=== PATIENT | female | born 1935 | race Caucasian/White ===

== ENCOUNTER → 2018-03-05 10:35 | Outpatient (CLI) | payer MEDICARE, OTHER, SELFPAY ==
--- NOTE | 2018-03-05 10:39 | DI.RAD.S_ITS ---
PROCEDURE: XR HIP W PEL IF DONE LT 2V INDICATIONS: hip pain TECHNIQUE: 2 views of the hip were acquired. COMPARISON: None. FINDINGS: Bones: No fractures or dislocations. No suspicious bony lesions. The visualized pelvic ring appears intact. Mild to moderate left hip joint osteoarthritis. Soft tissues: No suspicious soft tissue calcifications or masses. IMPRESSION: Mild to moderate left hip joint osteoarthritis, no trauma found. Mild right hip joint osteoarthritis incidentally noted. Dictated by: Kenneth Nj M.D. on 03/05/2018 at 12:07 Approved by: Kenneth Nj M.D. on 03/05/2018 at 12:08
[2018-03-05 11:41] LABS: Alanine Aminotransferase 30 IU/L (9-52); Albumin 4.4 g/dL (3.5-5.0); Albumin Globulin Ratio 1.2 (1.0-2.8); Alkaline Phosphatase 77 U/L (38-126); Aspartate Aminotransferase 35 IU/L (14-36); BUN Creatinine Ratio 24.3 (6-22); Bilirubin Total 0.5 mg/dL (0.2-1.3); Blood Urea Nitrogen 17 mg/dL (7-17); Calcium 9.2 mg/dL (8.4-10.2); Carbon Dioxide 26 mmol/L (22-32); Chloride 104 mmol/L (98-107); Estimated Glomerular Filt Rate > 60.0 mL/min (>60); Globulin 3.6 g/dL (1.7-4.1); Glucose 153 mg/dL (80-110); HEMOLYSIS < 15 (0-50); Potassium 3.8 mmol/L (3.4-5.1); Sodium 143 mmol/L (137-145)
[2018-03-05 12:03] LABS: Free T3, Triiodothyronine Free 2.45 pg/mL (2.77-5.27); Free T4, Direct Thyroxine 1.09 ng/dL (0.78-2.19)
[2018-03-05 12:16] LABS: Thyroid Stimulating Hormone 3.02 uIU/mL (0.47-4.68)
== END ==
PROVIDERS: PCP Internal Medicine; Visit Provider Internal Medicine
DX: M25.559 Pain in unspecified hip (principal); E03.9 Hypothyroidism, unspecified; I10 Essential (primary) hypertension
CPT/HCPCS: 36415; 73502; 80053; 84439; 84443; 84481

== ENCOUNTER → 2018-03-07 18:36 | Outpatient (REF) | payer MEDICARE, OTHER, SELFPAY | LOC: LAB 18:36 | PROVIDERS: PCP Internal Medicine; Visit Provider Physician Assistant | DX: L98.8 Other specified disorders of the skin and subcutaneous tissue (principal); Z08 Encounter for follow-up examination after completed treatment for malignant neoplasm; Z85.828 Personal history of other malignant neoplasm of skin; L57.0 Actinic keratosis; X32.XXXA Exposure to sunlight, initial encounter; D23.72 Other benign neoplasm of skin of left lower limb, including hip; L40.0 Psoriasis vulgaris | CPT/HCPCS: 87070; 87075; 87205 ==

== ENCOUNTER 2018-07-11 09:50 | Emergency (ER) | payer MEDICARE, OTHER, SELFPAY ==
[2018-07-11] VITALS (12 sets, daily range): BP systolic 111–148; BP diastolic 55–98; PULSE 81–140; RESP 13–22; TEMP 36.2; O2SAT 93–97; BMI 33.7
--- NOTE | 2018-07-11 10:08 | DI.RAD.S_ITS ---
PROCEDURE: XR CHEST 1V INDICATIONS: CHEST PAIN/SHORTNESS OF BREATH TECHNIQUE: One view of the chest was acquired. COMPARISON: None. FINDINGS: Surgical changes and devices: None. Lungs and pleura: Lungs are clear. No pleural effusions or pneumothorax. Mediastinum: Mediastinal contours appear normal. Heart size is normal. Bones and chest wall: No suspicious bony lesions. Overlying soft tissues appear unremarkable. IMPRESSION: No acute cardiopulmonary disease. Dictated by: Leilani Hubbard M.D. on 07/11/2018 at 10:34 Approved by: Leilani Hubbard M.D. on 07/11/2018 at 10:34
[2018-07-11 10:23] LABS: Add Manual Diff / Slide Review NO; Basophils Absolute Auto 100 /uL (0-100); Basophils Percent Auto 0.8 % (0-2); Eosinophils Absolute Auto 100 /uL (0-450); Hematocrit 47.9 % (36-46); Hemoglobin 15.8 g/dL (12.0-16.0); Lymphocytes Absolute Auto 2200 /uL (1100-4500); Lymphocytes Percent Auto 20.6 % (25-40); Mean Corpuscular Hemoglobin 30.4 PG (26-34); Mean Corpuscular Volume 92.1 fL (80-100); Monocytes Absolute Auto 900 /uL (0-900); Neutrophils Absolute Auto 7400 /uL (1500-7000); Neutrophils Percent Auto 69.6 % (50-75); Platelet Count 282 X10^3/uL (150-400); Red Blood Cell Count 5.21 X10^6/uL (4.0-5.2); Red Cell Distribution Width 14.1 % (11.6-14.8); White Blood Cell Count 10.6 X10^3/uL (4.5-11.0)
--- NOTE | 2018-07-11 10:24 | ED.ARRPALP ---
HPI - Arrhythmia/Palpitations General Chief Complaint: Arrhythmia/Palpitations Stated Complaint: EXCELLERATED HEART RATE Time Seen by Provider: 07/11/18 10:07 Source: patient and family Mode of arrival: ambulatory Limitations: no limitations History of Present Illness HPI narrative: 83-year-old female nonsmoker with history of AFib and hypothyroidism presents with her son in the chief complaint of rapid heart rate, palpitations, shortness of breath, dizziness and episodes of chest pain which started last evening. She is certain the symptoms started last evening as she is very sensitive to this arrhythmia. She denies runny nose, sore throat or fever. She has had no chills or nausea or vomiting. She denies diarrhea, dysuria or frequency. MD complaint: rapid heart beat, heart racing, palpitations and irregular heart beat Onset (ago): hour(s) Duration: constant Severity: moderate Context: occurred during rest Arrhythmia history: atrial fibrillation Associated symptoms: chest pain and shortness of breath Related Data Home Medications Medication Instructions Recorded Confirmed aspirin 81 mg tablet,delayed 81 mg PO DAILY 12/05/17 07/11/18 release potassium gluconate 550 mg (90 mg) 550 mg PO DAILY tab 12/05/17 07/11/18 tablet simvastatin 10 mg tablet 10 mg PO QPM 12/05/17 07/11/18 zolpidem 5 mg tablet 5 mg PO BEDTIME PRN 12/05/17 07/11/18 antiox. [id number] 1 cap PO DAILY 07/11/18 07/11/18 [I-Caps] clobetasol 1 applic TOPICAL DIRECTED PRN 07/11/18 07/11/18 hydrocortisone 1 applic TOPICAL DIRECTED 07/11/18 07/11/18 levothyroxine 75 mcg PO DAILY 07/11/18 07/11/18 Previous Rx's Medication Instructions Recorded ranitidine 150 mg capsule 300 mg PO DAILY #120 cap 04/09/18 losartan 50 mg-hydrochlorothiazide 1 tab PO DAILY #90 tab 06/19/18 12.5 mg tablet apixaban [Eliquis] 5 mg PO BID #30 tab 07/11/18 Allergies Allergy/AdvReac Type Severity Reaction Status Date / Time Sulfa (Sulfonamide AdvReac Mild Sensitivity Verified 06/11/18 09:54 Antibiotics) Review of Systems Review of Systems ROS Unobtainable: All systems reviewed & are unremarkable except as noted in HPI and below Constitutional Denies chills, Denies fever(s), Denies lethargy and Denies weakness Eyes Denies change in vision, Denies eye discharge, Denies irritation and Denies loss of vision ENT Ears, Nose, Mouth, and Throat: Denies change in voice, Denies neck pain and Denies sore throat Cardiovascular Reports chest pain, Denies irregular heart rhythm, Reports lightheadedness, Denies palpitations, Reports dyspnea, Reports dyspnea on exertion and Denies orthopnea Respiratory Denies cough, Reports dyspnea, Reports dyspnea on exertion and Denies wheezing Gastrointestinal Gastrointestinal: Denies abdominal pain, Denies change in bowel habits, Denies diarrhea, Denies nausea and Denies vomiting Genitourinary Denies hematuria, Denies flank pain, Denies urinary incontinence and Denies urinary urgency Musculoskeletal Denies neck pain Integumentary/Breasts Denies pruritus, Denies erythema, Denies rash and Denies wounds Neurologic Denies confusion, Denies loss of vision and Denies weakness Psychiatric Denies anxiety, Denies confusion, Denies depression, Denies homicidal ideation and Denies suicidal ideation Endocrine Denies palpitations Hematologic/Lymphatic Denies easy bruising Allergic/Immunologic Denies wheezing PFSH Medical History Hypertension (Chronic) Hyperlipidemia (Chronic) Hypothyroid (Chronic) Paroxysmal atrial fibrillation (Chronic) Insomnia (Chronic) Hiatal hernia (Chronic) Osteoarthritis of hip (Chronic) Diverticular disease of colon (Chronic) Rosacea (Chronic) Herpes simplex ophthalmicus (Inactive) Surgical History S/P tonsillectomy (Inactive ~1948) S/P shalonda (Inactive ~1962) H/O: hysterectomy (Inactive ~1980) S/P bilateral salpingo-oophorectomy (Inactive ~10/16/13) S/p bilateral blepharoplasty (Inactive 06/20/16) Social History marital status: number of children: 3 household members: spouse lives independently: Yes caregiver/support person: No housing: house pets and animals: No education level: high school occupational status: other (Retired) 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 (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.) leisure activities: reading and other (Traveling, Dinner out, socialize) Smoking Status: Former smoker Tobacco: How many years used: 15 Smokeless tobacco user: other (Cigarettes) quit status: quit date established (1969) second hand exposure: No alcohol intake: current (Wine once in a while, drinks occasionally, very seldom.) substance use type: does not use Social History marital status: number of children: 3 household members: spouse lives independently: Yes caregiver/support person: No housing: house pets and animals: No education level: high school occupational status: other (Retired) 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 Normocephalic. No temporal or scalp tenderness. EYES: Pupils equal round and reactive. Extraocular motions intact. No scleral icterus. No injection or drainage. ENT: Nose without bleeding, purulent drainage or septal hematoma. Throat without erythema, tonsillar hypertrophy or exudate. Uvula midline. Airway patent. NECK: Trachea midline. No JVD or lymphadenopathy. Supple, nontender, no meningeal signs. CARDIOVASCULAR: Tachycardic and irregular, no murmurs, clicks, rubs or gallops RESPIRATORY: Clear to auscultation. Breath sounds equal bilaterally. No wheezes, rales, or rhonchi. GASTROINTESTINAL: Abdomen soft, non-tender, nondistended. No hepato-splenomegaly, or palpable masses. No guarding. EXTREMITIES: No clubbing, cyanosis, or edema. No joint tenderness, effusion, or edema noted. BACK: Nontender without deformity or crepitance. No flank tenderness. NEURO: AOx3. SKIN: No rash or erythema. Initial Vital Signs Initial Vital Signs: Vital Signs Temperature 97.2 F L 07/11/18 10:08 Pulse Rate 140 H 07/11/18 10:08 Respiratory Rate 22 07/11/18 10:08 Blood Pressure 148/98 H 07/11/18 10:08 Pulse Oximetry 97 07/11/18 10:08 Procedures Cardioversion Consent Signed: Yes Indication: Atrial flutter Stability: Stable Time out performed: Yes Preparation: shelter monitor applied, pulse oximeter, capnometry used, supplemental O2 applied, suction/airway equipment at bedside and IV secured IV Propofol Dose (mgs): 30 Total Time of Sedation (Min): 10 Number of attempts (shocks): 1 Joules used: 50 Cardiac rhythm post-cardioversion: Normal sinus rhythm Patient tolerated procedure sedation: Well Procedural Sedation Patient Age: Patient is 5yrs or older Consent signed: Yes Time out performed: Yes Indication: other (cardioversion) ASA Class: II Mallampati Airway Classification: Class II Preparation: shelter monitor applied, pulse oximeter, capnometry used, supplemental O2 applied, suction/airway equipment at bedside and IV secured IV Propofol dose (mg): 30 Intraservice time/total sedation time (min): 10 ED Sedation Level: Moderate (Concious) Patient Tolerated Procedure: Well Complications: none Additional Comments: 5 second episode of asystole before popping back in to normal sinus Course Orders Ordered: Discontinued Medications Enoxaparin Sodium (Lovenox) 40 mg SUBCUT NOW ONE Stop: 07/11/18 11:54 Last Admin: 07/11/18 12:13 Dose: 40 mg Sodium Chloride (Normal Saline 0.9%) 1,000 mls @ 150 mls/hr IV CONT LISETTE Last Infusion: 07/11/18 13:29 Dose: 0 mls/hr Admin: 07/11/18 10:54 Dose: 150 mls/hr Propofol (Diprivan) 30 mg IV NOW ONE Stop: 07/11/18 12:14 Last Admin: 07/11/18 12:14 Dose: 30 mg Consultations Consultation #1: Related findings of the case with patient's primary care provider, he will follow up with her closely as an outpatient Vital Signs - 8 hr 07/11/18 13:31 Pulse Rate 83 Respiratory Rate 15 Blood Pressure 115/55 L Pulse Oximetry 94 MDM - Arrhythmia/Palpitations Medical Records Attestation: I reviewed the patient's medical records. Lab Data Attestation: I reviewed the patient's lab results. Result diagrams: 07/11/18 10:15 07/11/18 10:15 Lab Results 07/11/18 07/11/18 07/11/18 Range/Units 10:15 10:15 10:15 WBC 10.6 (4.5-11.0) X10^3/uL RBC 5.21 H (4.0-5.2) X10^6/uL Hgb 15.8 (12.0-16.0) g/dL Hct 47.9 H (36-46) % MCV 92.1 (80-100) fL MCH 30.4 (26-34) PG MCHC 33.0 (30-36) % RDW 14.1 (11.6-14.8) % Plt Count 282 (150-400) X10^3/uL Neut % (Auto) 69.6 (50-75) % Lymph % (Auto) 20.6 L (25-40) % Teller % (Auto) 8.0 (3-14) % Eos % (Auto) 1.0 L (2-4) % Baso % (Auto) 0.8 (0-2) % Neut # (Auto) 7400 H (7818-5199) /uL Lymph # (Auto) 2200 (6082-5789) /uL Teller # (Auto) 900 (0-900) /uL Eos # (Auto) 100 (0-450) /uL Baso # (Auto) 100 (0-100) /uL PT 12.5 (10.1-12.7) SECONDS INR 1.1 (0.9-1.3) APTT 32 (26.4-36.2) SECONDS Sodium 141 (137-145) mmol/L Potassium 3.5 (3.4-5.1) mmol/L Chloride 104 (98-107) mmol/L Carbon Dioxide 26 (22-32) mmol/L BUN 14 (7-17) mg/dL Creatinine 0.70 (0.52-1.04) mg/dL Estimated GFR > 60.0 (>60) mL/min BUN/Creatinine Ratio 20.0 (6-22) Glucose 120 H (80-110) mg/dL Calcium 9.4 (8.4-10.2) mg/dL Magnesium 2.2 (1.6-2.3) mg/dL Total Creatine Kinase 48 (30-135) U/L CK-MB (CK-2) TNP CK-MB (CK-2) Rel Index TNP Troponin I < 0.012 (0.01-0.034) ng/mL TSH (0.47-4.68) uIU/mL 07/11/18 Range/Units 10:15 WBC (4.5-11.0) X10^3/uL RBC (4.0-5.2) X10^6/uL Hgb (12.0-16.0) g/dL Hct (36-46) % MCV (80-100) fL MCH (26-34) PG MCHC (30-36) % RDW (11.6-14.8) % Plt Count (150-400) X10^3/uL Neut % (Auto) (50-75) % Lymph % (Auto) (25-40) % Teller % (Auto) (3-14) % Eos % (Auto) (2-4) % Baso % (Auto) (0-2) % Neut # (Auto) (9476-2350) /uL Lymph # (Auto) (8376-7958) /uL Teller # (Auto) (0-900) /uL Eos # (Auto) (0-450) /uL Baso # (Auto) (0-100) /uL PT (10.1-12.7) SECONDS INR (0.9-1.3) APTT (26.4-36.2) SECONDS Sodium (137-145) mmol/L Potassium (3.4-5.1) mmol/L Chloride (98-107) mmol/L Carbon Dioxide (22-32) mmol/L BUN (7-17) mg/dL Creatinine (0.52-1.04) mg/dL Estimated GFR (>60) mL/min BUN/Creatinine Ratio (6-22) Glucose (80-110) mg/dL Calcium (8.4-10.2) mg/dL Magnesium (1.6-2.3) mg/dL Total Creatine Kinase (30-135) U/L CK-MB (CK-2) CK-MB (CK-2) Rel Index Troponin I (0.01-0.034) ng/mL TSH 3.14 (0.47-4.68) uIU/mL ECG Data Attestation: I personally reviewed and interpreted this ECG as follows: Prior ECG tracings: available for review Interpretation: Atrial flutter and 140s, no signs of ischemia Discharge Plan Departure Patient Disposition: Home Clinical Impression: Atrial flutter Qualifiers: Atrial flutter type: typical Qualified Code(s): I48.3 - Typical atrial flutter Discharge Date/Time: 07/11/18 13:33 Interventions: ED Discharge Assessment Last Done: 07/11/18 13:31 Activity Restrictions/Additional Instructions: *You have been diagnosed with [ rapid atrial flutter with electrocardioversion ] *What to do: *Take medications as directed *Follow up with your primary care provider in 2-3 days, call for an appointment. Let them know you were seen in the Emergency Department and that we ask that you be seen in follow up. I spoke with Dr. Liang regarding your care today immediately after cardioversion so he is aware. *Return to ER if you should have any new, worsening or concerning symptoms Prescriptions: New Eliquis 5 mg tablet 5 mg PO BID Qty: 30 RF: 0 No Action ranitidine HCl 150 mg capsule 300 mg PO DAILY Qty: 120 RF: 3 losartan-hydrochlorothiazide 50-12.5 mg tablet 1 tab PO DAILY Qty: 90 RF: 3 simvastatin 10 mg tablet 10 mg PO QPM RF: 0 aspirin 81 mg tablet,delayed release (DR/EC) 81 mg PO DAILY RF: 0 zolpidem 5 mg tablet 5 mg PO BEDTIME PRN (Reason: Insomnia) RF: 0 potassium gluconate 550 mg (90 mg) tablet 550 mg PO DAILY RF: 0 I-Caps 280-10-2 mg Capsule 1 cap PO DAILY RF: 0 levothyroxine 75 mcg tablet 75 mcg PO DAILY RF: 0 hydrocortisone 2.5 % cream 1 applic topical DIRECTED RF: 0 clobetasol 0.05 % solution 1 applic topical DIRECTED PRN (Reason: as directed) RF: 0 Referrals: Godfrey Liang MD [Primary Care Provider] -
[2018-07-11 10:26] LABS: INR 1.1 (0.9-1.3); Prothrombin Time 12.5 SECONDS (10.1-12.7)
[2018-07-11 10:29] LABS: PTT Partial Thromboplastin Tim 32 SECONDS (26.4-36.2)
[2018-07-11 10:32] LABS: Blood Urea Nitrogen 14 mg/dL (7-17); Calcium 9.4 mg/dL (8.4-10.2); Carbon Dioxide 26 mmol/L (22-32); Chloride 104 mmol/L (98-107); Creatine Kinase 48 U/L (30-135); Estimated Glomerular Filt Rate > 60.0 mL/min (>60); Glucose 120 mg/dL (80-110); HEMOLYSIS < 15 (0-50); Magnesium 2.2 mg/dL (1.6-2.3); Potassium 3.5 mmol/L (3.4-5.1); Sodium 141 mmol/L (137-145)
[2018-07-11 10:42] LABS: Troponin I < 0.012 ng/mL (0.01-0.034)
[2018-07-11] MEDS: SODIUM CHLORIDE 0.9% 1,000 ML 150 ML IV (10:54)
[2018-07-11 11:01] LABS: Thyroid Stimulating Hormone 3.14 uIU/mL (0.47-4.68)
[2018-07-11] MEDS: ENOXAPARIN 40 MG/0.4 ML SYRINGE SUBCUT (12:13)
[2018-07-11] MEDS: PROPOFOL 200 MG/20 ML VIAL 30 MG IV (12:14)
--- NOTE | 2018-07-11 20:43 | ED_ITS ---
HPI - Arrhythmia/Palpitations General Chief Complaint: Arrhythmia/Palpitations Stated Complaint: EXCELLERATED HEART RATE Time Seen by Provider: 07/11/18 10:07 Source: patient and family Mode of arrival: ambulatory Limitations: no limitations History of Present Illness HPI narrative: 83-year-old female nonsmoker with history of AFib and hypothyroidism presents with her son in the chief complaint of rapid heart rate, palpitations, shortness of breath, dizziness and episodes of chest pain which started last evening. She is certain the symptoms started last evening as she is very sensitive to this arrhythmia. She denies runny nose, sore throat or fever. She has had no chills or nausea or vomiting. She denies diarrhea, dysuria or frequency. MD complaint: rapid heart beat, heart racing, palpitations and irregular heart beat Onset (ago): hour(s) Duration: constant Severity: moderate Context: occurred during rest Arrhythmia history: atrial fibrillation Associated symptoms: chest pain and shortness of breath Related Data Home Medications Medication Instructions Recorded Confirmed aspirin 81 mg tablet,delayed 81 mg PO DAILY 12/05/17 07/11/18 release potassium gluconate 550 mg (90 mg) 550 mg PO DAILY tab 12/05/17 07/11/18 tablet simvastatin 10 mg tablet 10 mg PO QPM 12/05/17 07/11/18 zolpidem 5 mg tablet 5 mg PO BEDTIME PRN 12/05/17 07/11/18 antiox. [id number] 1 cap PO DAILY 07/11/18 07/11/18 [I-Caps] clobetasol 1 applic TOPICAL DIRECTED PRN 07/11/18 07/11/18 hydrocortisone 1 applic TOPICAL DIRECTED 07/11/18 07/11/18 levothyroxine 75 mcg PO DAILY 07/11/18 07/11/18 Previous Rx's Medication Instructions Recorded ranitidine 150 mg capsule 300 mg PO DAILY #120 cap 04/09/18 losartan 50 mg-hydrochlorothiazide 1 tab PO DAILY #90 tab 06/19/18 12.5 mg tablet apixaban [Eliquis] 5 mg PO BID #30 tab 07/11/18 Allergies Allergy/AdvReac Type Severity Reaction Status Date / Time Sulfa (Sulfonamide AdvReac Mild Sensitivity Verified 06/11/18 09:54 Antibiotics) Review of Systems Review of Systems ROS Unobtainable: All systems reviewed & are unremarkable except as noted in HPI and below Constitutional Denies chills, Denies fever(s), Denies lethargy and Denies weakness Eyes Denies change in vision, Denies eye discharge, Denies irritation and Denies loss of vision ENT Ears, Nose, Mouth, and Throat: Denies change in voice, Denies neck pain and Denies sore throat Cardiovascular Reports chest pain, Denies irregular heart rhythm, Reports lightheadedness, Denies palpitations, Reports dyspnea, Reports dyspnea on exertion and Denies orthopnea Respiratory Denies cough, Reports dyspnea, Reports dyspnea on exertion and Denies wheezing Gastrointestinal Gastrointestinal: Denies abdominal pain, Denies change in bowel habits, Denies diarrhea, Denies nausea and Denies vomiting Genitourinary Denies hematuria, Denies flank pain, Denies urinary incontinence and Denies urinary urgency Musculoskeletal Denies neck pain Integumentary/Breasts Denies pruritus, Denies erythema, Denies rash and Denies wounds Neurologic Denies confusion, Denies loss of vision and Denies weakness Psychiatric Denies anxiety, Denies confusion, Denies depression, Denies homicidal ideation and Denies suicidal ideation Endocrine Denies palpitations Hematologic/Lymphatic Denies easy bruising Allergic/Immunologic Denies wheezing PFSH Medical History Hypertension (Chronic) Hyperlipidemia (Chronic) Hypothyroid (Chronic) Paroxysmal atrial fibrillation (Chronic) Insomnia (Chronic) Hiatal hernia (Chronic) Osteoarthritis of hip (Chronic) Diverticular disease of colon (Chronic) Rosacea (Chronic) Herpes simplex ophthalmicus (Inactive) Surgical History S/P tonsillectomy (Inactive ~1948) S/P shalonda (Inactive ~1962) H/O: hysterectomy (Inactive ~1980) S/P bilateral salpingo-oophorectomy (Inactive ~10/16/13) S/p bilateral blepharoplasty (Inactive 06/20/16) Social History marital status: number of children: 3 household members: spouse lives independently: Yes caregiver/support person: No housing: house pets and animals: No education level: high school occupational 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 travel reservations history: recurrent (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.) leisure activities: reading and other (Traveling, Dinner out, socialize) Smoking Status: Former smoker Tobacco: How many years used: 15 Smokeless tobacco user: other (Cigarettes) quit status: quit date established (1969) second hand exposure: No alcohol intake: current (Wine once in a while, drinks occasionally, very seldom.) substance use type: does not use Social History marital status: number of children: 3 household members: spouse lives independently: Yes caregiver/support person: No housing: house pets and animals: No education level: high school 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 Normocephalic. No temporal or scalp tenderness. EYES: Pupils equal round and reactive. Extraocular motions intact. No scleral icterus. No injection or drainage. ENT: Nose without bleeding, purulent drainage or septal hematoma. Throat without erythema, tonsillar hypertrophy or exudate. Uvula midline. Airway patent. NECK: Trachea midline. No JVD or lymphadenopathy. Supple, nontender, no meningeal signs. CARDIOVASCULAR: Tachycardic and irregular, no murmurs, clicks, rubs or gallops RESPIRATORY: Clear to auscultation. Breath sounds equal bilaterally. No wheezes, rales, or rhonchi. GASTROINTESTINAL: Abdomen soft, non-tender, nondistended. No hepato- splenomegaly, or palpable masses. No guarding. EXTREMITIES: No clubbing, cyanosis, or edema. No joint tenderness, effusion, or edema noted. BACK: Nontender without deformity or crepitance. No flank tenderness. NEURO: AOx3. SKIN: No rash or erythema. Initial Vital Signs Initial Vital Signs: Vital Signs Temperature 97.2 F L 07/11/18 10:08 Pulse Rate 140 H 07/11/18 10:08 Respiratory Rate 22 07/11/18 10:08 Blood Pressure 148/98 H 07/11/18 10:08 Pulse Oximetry 97 07/11/18 10:08 Procedures Cardioversion Consent Signed: Yes Indication: Atrial flutter Stability: Stable Time out performed: Yes Preparation: metrology technician applied, pulse oximeter, capnometry used, supplemen lesia O2 applied, suction/airway equipment at bedside and IV secured IV Propofol Dose (mgs): 30 Total Time of Sedation (Min): 10 Number of attempts (shocks): 1 Joules used: 50 Cardiac rhythm post-cardioversion: Normal sinus rhythm Patient tolerated procedure sedation: Well Procedural Sedation Patient Age: Patient is 5yrs or older Consent signed: Yes Time out performed: Yes Indication: other (cardioversion) ASA Class: II Mallampati Airway Classification: Class II Preparation: metrology technician applied, pulse oximeter, capnometry used, supplemental O2 applied, suction/airway equipment at bedside and IV secured IV Propofol dose (mg): 30 Intraservice time/total sedation time (min): 10 ED Sedation Level: Moderate (Concious) Patient Tolerated Procedure: Well Complications: none Additional Comments: 5 second episode of asystole before popping back in to normal sinus Course Orders Ordered: Discontinued Medications Enoxaparin Sodium (Lovenox) 40 mg SUBCUT NOW ONE Stop: 07/11/18 11:54 Last Admin: 07/11/18 12:13 Dose: 40 mg Sodium Chloride (Normal Saline 0.9%) 1,000 mls @ 150 mls/hr IV CONT LISETTE Last Infusion: 07/11/18 13:29 Dose: 0 mls/hr Admin: 07/11/18 10:54 Dose: 150 mls/hr Propofol (Diprivan) 30 mg IV NOW ONE Stop: 07/11/18 12:14 Last Admin: 07/11/18 12:14 Dose: 30 mg Consultations Consultation #1: Related findings of the case with patient's primary care prov ider, he will follow up with her closely as an outpatient Vital Signs - 8 hr 07/11/18 13:31 Pulse Rate 83 Respiratory Rate 15 Blood Pressure 115/55 L Pulse Oximetry 94 MDM - Arrhythmia/Palpitations Medical Records Attestation: I reviewed the patient's medical records. Lab Data Attestation: I reviewed the patient's lab results. Result diagrams: 07/11/18 10:15 07/11/18 10:15 Lab Results 07/11/18 07/11/18 07/11/18 Range/Units 10:15 10:15 10:15 WBC 10.6 (4.5-11.0) X10^3/uL RBC 5.21 H (4.0-5.2) X10^6/uL Hgb 15.8 (12.0-16.0) g/dL Hct 47.9 H (36-46) % MCV 92.1 (80-100) fL MCH 30.4 (26-34) PG MCHC 33.0 (30-36) % RDW 14.1 (11.6-14.8) % Plt Count 282 (150-400) X10^3/uL Neut % (Auto) 69.6 (50-75) % Lymph % (Auto) 20.6 L (25-40) % Pepin % (Auto) 8.0 (3-14) % Eos % (Auto) 1.0 L (2-4) % Baso % (Auto) 0.8 (0-2) % Neut # (Auto) 7400 H (7950-1180) /uL Lymph # (Auto) 2200 (1804-5173) /uL Pepin # (Auto) 900 (0-900) /uL Eos # (Auto) 100 (0-450) /uL Baso # (Auto) 100 (0-100) /uL PT 12.5 (10.1-12.7) SECONDS INR 1.1 (0.9-1.3) APTT 32 (26.4-36.2) SECONDS Sodium 141 (137-145) mmol/L Potassium 3.5 (3.4-5.1) mmol/L Chloride 104 (98-107) mmol/L Carbon Dioxide 26 (22-32) mmol/L BUN 14 (7-17) mg/dL Creatinine 0.70 (0.52-1.04) mg/dL Estimated GFR > 60.0 (>60) mL/min BUN/Creatinine Ratio 20.0 (6-22) Glucose 120 H (80-110) mg/dL Calcium 9.4 (8.4-10.2) mg/dL Magnesium 2.2 (1.6-2.3) mg/dL Total Creatine Kinase 48 (30-135) U/L CK-MB (CK-2) TNP CK-MB (CK-2) Rel Index TNP Troponin I < 0.012 (0.01-0.034) ng/mL TSH (0.47-4.68) uIU/mL 07/11/18 Range/Units 10:15 WBC (4.5-11.0) X10^3/uL RBC (4.0-5.2) X10^6/uL Hgb (12.0-16.0) g/dL Hct (36-46) % MCV (80-100) fL MCH (26-34) PG MCHC (30-36) % RDW (11.6-14.8) % Plt Count (150-400) X10^3/uL Neut % (Auto) (50-75) % Lymph % (Auto) (25-40) % Pepin % (Auto) (3-14) % Eos % (Auto) (2-4) % Baso % (Auto) (0-2) % Neut # (Auto) (8988-9226) /uL Lymph # (Auto) (2170-9876) /uL Pepin # (Auto) (0-900) /uL Eos # (Auto) (0-450) /uL Baso # (Auto) (0-100) /uL PT (10.1-12.7) SECONDS INR (0.9-1.3) APTT (26.4-36.2) SECONDS Sodium (137-145) mmol/L Potassium (3.4-5.1) mmol/L Chloride (98-107) mmol/L Carbon Dioxide (22-32) mmol/L BUN (7-17) mg/dL Creatinine (0.52-1.04) mg/dL Estimated GFR (>60) mL/min BUN/Creatinine Ratio (6-22) Glucose (80-110) mg/dL Calcium (8.4-10.2) mg/dL Magnesium (1.6-2.3) mg/dL Total Creatine Kinase (30-135) U/L CK-MB (CK-2) CK-MB (CK-2) Rel Index Troponin I (0.01-0.034) ng/mL TSH 3.14 (0.47-4.68) uIU/mL ECG Data Attestation: I personally reviewed and interpreted this ECG as follows: Prior ECG tracings: available for review Interpretation: Atrial flutter and 140s, no signs of ischemia Discharge Plan Departure Patient Disposition: Home Clinical Impression: Atrial flutter Qualifiers: Atrial flutter type: typical Qualified Code(s): I48.3 - Typical atrial flutter Discharge Date/Time: 07/11/18 13:33 Interventions: ED Discharge Assessment Last Done: 07/11/18 13:31 Activity Restrictions/Additional Instructions: *You have been diagnosed with [ rapid atrial flutter with electrocardioversion ] *What to do: *Take medications as directed *Follow up with your primary care provider in 2-3 days, call for an appointment. Let them know you were seen in the Emergency Department and that we ask that you be seen in follow up. I spoke with Dr. Liang regarding your care today immediately after cardioversion so he is aware. *Return to ER if you should have any new, worsening or concerning symptoms Prescriptions: New Eliquis 5 mg tablet 5 mg PO BID Qty: 30 RF: 0 No Action ranitidine HCl 150 mg capsule 300 mg PO DAILY Qty: 120 RF: 3 losartan-hydrochlorothiazide 50-12.5 mg tablet 1 tab PO DAILY Qty: 90 RF: 3 simvastatin 10 mg tablet 10 mg PO QPM RF: 0 aspirin 81 mg tablet,delayed release (DR/EC) 81 mg PO DAILY RF: 0 zolpidem 5 mg tablet 5 mg PO BEDTIME PRN (Reason: Insomnia) RF: 0 potassium gluconate 550 mg (90 mg) tablet 550 mg PO DAILY RF: 0 I-Caps 280-10-2 mg Capsule 1 cap PO DAILY RF: 0 levothyroxine 75 mcg tablet 75 mcg PO DAILY RF: 0 hydrocortisone 2.5 % cream 1 applic topical DIRECTED RF: 0 clobetasol 0.05 % solution 1 applic topical DIRECTED PRN (Reason: as directed) RF: 0 Referrals: Godfrey Liang MD [Primary Care Provider] -
== END 2018-07-11 13:33 | disposition home or self-care (01) ==
PROVIDERS: Emergency Provider Emergency Medicine; PCP Internal Medicine
DX: I48.3 Typical atrial flutter (principal); E16.2 Hypoglycemia, unspecified
CPT/HCPCS: 36591; 71045; 80048; 82550; 83735; 84443; 84484; 85025; 85610; 85730; 92960; 93005; 94770; 96361; 96374; 99152; 99282; 99285; J1650; J2704

== ENCOUNTER 2018-07-11 15:52 | Emergency (ER) | payer MEDICARE, OTHER, SELFPAY ==
[2018-07-11 16:25] VITALS: BP 133/97; PULSE 82; RESP 18; TEMP 36.5; O2SAT 96
[2018-07-11 16:58] VITALS: PULSE 140; RESP 18; O2SAT 93
[2018-07-11 17:00] VITALS: BP 105/54; PULSE 77; RESP 18; O2SAT 97
--- NOTE | 2018-07-11 17:00 | ED_ITS ---
HPI - Syncope General Chief Complaint: Syncope Stated Complaint: FEELS FAINT Time Seen by Provider: 07/11/18 16:08 Source: patient and family Mode of arrival: ambulatory Limitations: no limitations History of Present Illness HPI narrative: 83-year-old female returns for the 2nd time today. She was seen earlier for evaluation of a tachyarrhythmia. She had a cardioversion and was discharged after a period of observation. She felt great and had a complete resolution of her symptoms. Her had just been brought in by EMS after a syncopal episode and she presented with her son and during her 's visit she states she began to feel a bit faint and lightheaded. She was taken to another exam room and checked in. She admittedly had been up most of the day and had very little to eat or drink. Early on her blood sugar was checked and found to be quite low. MD complaint: felt faint Onset (ago): minute(s) Duration of episode: 30 -: minutes(s) Prodromal symptoms: lightheaded Witnessed: yes - by bystander Context: at rest Injuries sustained associated with event: none Current symptoms: lightheaded Treatments prior to arrival: none Related Data Home Medications Medication Instructions Recorded Confirmed aspirin 81 mg tablet,delayed 81 mg PO DAILY 12/05/17 07/11/18 release potassium gluconate 550 mg (90 mg) 550 mg PO DAILY tab 12/05/17 07/11/18 tablet simvastatin 10 mg tablet 10 mg PO QPM 12/05/17 07/11/18 zolpidem 5 mg tablet 5 mg PO BEDTIME PRN 12/05/17 07/11/18 antiox. no.[id number] 1 cap PO DAILY 07/11/18 07/11/18 [I-Caps] clobetasol 1 applic TOPICAL DIRECTED PRN 07/11/18 07/11/18 hydrocortisone 1 applic TOPICAL DIRECTED 07/11/18 07/11/18 levothyroxine 75 mcg PO DAILY 07/11/18 07/11/18 Previous Rx's Medication Instructions Recorded ranitidine 150 mg capsule 300 mg PO DAILY #120 cap 04/09/18 losartan 50 mg-hydrochlorothiazide 1 tab PO DAILY #90 tab 06/19/18 12.5 mg tablet apixaban [Eliquis] 5 mg PO BID #30 tab 07/11/18 Allergies Allergy/AdvReac Type Severity Reaction Status Date / Time Sulfa (Sulfonamide AdvReac Mild Sensitivity Verified 06/11/18 09:54 Antibiotics) Review of Systems Constitutional Denies chills, Denies fever(s), Denies lethargy and Reports weakness Eyes Denies change in vision, Denies eye discharge, Denies irritation and Denies loss of vision ENT Ears, Nose, Mouth, and Throat: Denies change in voice, Denies neck pain and Denies sore throat Cardiovascular Denies chest pain, Denies irregular heart rhythm, Reports lightheadedness, Denies palpitations, Denies dyspnea, Denies dyspnea on exertion and Denies orthopnea Respiratory Denies cough, Denies dyspnea, Denies dyspnea on exertion and Denies wheezing Gastrointestinal Gastrointestinal: Denies abdominal pain, Denies change in bowel habits, Denies diarrhea, Denies nausea and Denies vomiting Genitourinary Denies hematuria, Denies flank pain, Denies urinary incontinence and Denies urinary urgency Musculoskeletal Denies neck pain Integumentary/Breasts Denies pruritus, Denies erythema, Denies rash and Denies wounds Neurologic Denies confusion, Denies loss of vision and Reports weakness Psychiatric Denies anxiety, Denies confusion, Denies depression, Denies homicidal ideation and Denies suicidal ideation Endocrine Denies palpitations Hematologic/Lymphatic Denies easy bruising Allergic/Immunologic Denies wheezing PFSH Social History marital status: number of children: 3 household members: spouse lives independently: Yes caregiver/support person: No housing: house pets and animals: No education level: high school occupational status: other (Retired) 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 Extraoccular muscles are intact bilaterally. There is no subconjunctival hemorrhage or exudate. CHEST: Lungs are clear to auscultation bilaterally and free of wheezes, rales, or rhonchi. Heart rate is regular rhythm, there are no murmurs, clicks, rubs, or gallops. There is no chest wall tenderness. ABD: Abdomen is soft and nontender. There is no guarding or rebound. Bowel sounds are normal in all 4 quadrants. There is no mass or organomegaly. EXT: Full painless ROM of all extremities with no loss of sensation or strength. SKIN: Warm, pink, and dry. No erythema or rash Initial Vital Signs Initial Vital Signs: Vital Signs Temperature 97.7 F 07/11/18 16:25 Pulse Rate 82 07/11/18 16:25 Respiratory Rate 18 07/11/18 16:25 Blood Pressure 133/97 H 07/11/18 16:25 Pulse Oximetry 96 07/11/18 16:25 Course Reevaluation(s) Reevaluation #1: Patient with complete resolution of symptoms after some rest and receiving fluids and some glucose. Vital Signs - 8 hr 07/11/18 16:25 07/11/18 16:58 07/11/18 17:00 Temperature 97.7 F Pulse Rate 82 140 H 77 Respiratory Rate 18 18 18 Blood Pressure 133/97 H Blood Pressure [Right Arm] 105/54 L Pulse Oximetry 96 97 07/11/18 17:35 Temperature Pulse Rate 80 Respiratory Rate 18 Blood Pressure 105/64 Blood Pressure [Right Arm] Pulse Oximetry 96 MDM - Syncope MDM Narrative Medical decision making narrative: 83-year-old with recent cardioversion presents feeling light headed. Her EKG is normal sinus rhythm. She admittedly had not had anything to eat or drink over the course of the day and it becomes stressed about her 's arrival in the emergency department. She had complete resolution of symptoms after addressing her low blood sugar Discharge Plan Departure Patient Disposition: Home Clinical Impression: Hypoglycemia Discharge Date/Time: 07/11/18 17:36 Interventions: ED Discharge Assessment Last Done: 07/11/18 17:35 Instructions: Fainting Activity Restrictions/Additional Instructions: *You have been diagnosed with [ lightheadedness, low blood sugar, fatigue] *What to do: *Continue to take medications as directed *Follow up with your primary care provider in 2-3 days, call for an appointment. Let them know you were seen in the Emergency Department and that we ask that you be seen in follow up *Return to ER if you should have any new, worsening or concerning symptoms Prescriptions: No Action ranitidine HCl 150 mg capsule 300 mg PO DAILY Qty: 120 RF: 3 losartan-hydrochlorothiazide 50-12.5 mg tablet 1 tab PO DAILY Qty: 90 RF: 3 simvastatin 10 mg tablet 10 mg PO QPM RF: 0 aspirin 81 mg tablet,delayed release (DR/EC) 81 mg PO DAILY RF: 0 zolpidem 5 mg tablet 5 mg PO BEDTIME PRN (Reason: Insomnia) RF: 0 potassium gluconate 550 mg (90 mg) tablet 550 mg PO DAILY RF: 0 I-Caps 280-10-2 mg Capsule 1 cap PO DAILY RF: 0 levothyroxine 75 mcg tablet 75 mcg PO DAILY RF: 0 hydrocortisone 2.5 % cream 1 applic topical DIRECTED RF: 0 clobetasol 0.05 % solution 1 applic topical DIRECTED PRN (Reason: as directed) RF: 0 Eliquis 5 mg tablet 5 mg PO BID Qty: 30 RF: 0 Referrals: Godfrey Liang MD [Primary Care Provider] -
[2018-07-11 17:35] VITALS: BP 105/64; PULSE 80; RESP 18; O2SAT 96
== END 2018-07-11 17:36 | disposition home or self-care (01) ==
PROVIDERS: Emergency Provider Emergency Medicine; PCP Internal Medicine
DX: E16.2 Hypoglycemia, unspecified (principal)
CPT/HCPCS: 93005; 94770

== ENCOUNTER → 2018-12-17 10:04 | Outpatient (CLI) | payer MEDICARE, OTHER, SELFPAY ==
--- NOTE | 2018-12-17 | DI.RAD.S_ITS ---
PROCEDURE: XR CHEST 2V INDICATIONS: COUGH TECHNIQUE: 2 views of the chest were acquired. COMPARISON: [facility], CR, XR CHEST 2 VIEWS, 08/15/2018, 7:51. [facility], CR, XR CHEST 1V, 07/11/2018, 10:24. FINDINGS: Surgical changes and devices: Dual chamber cardiac pacemaker device and leads appear normal, stable over time.. Lungs and pleura: Lungs are clear. No pleural effusions or pneumothorax. Mediastinum: Mediastinal contours are normal. Heart size is normal. Bones and chest wall: No suspicious bony abnormalities. Soft tissues appear unremarkable. IMPRESSION: A speaking device and leads normal, and no source of cough is found. Dictated by: Kenneth Nj M.D. on 12/17/2018 at 12:38 Approved by: Kenneth Nj M.D. on 12/17/2018 at 12:39
== END ==
PROVIDERS: PCP Internal Medicine; Visit Provider Internal Medicine Cardiovascular Disease
DX: R05 Cough (principal)
CPT/HCPCS: 71046

== ENCOUNTER → 2019-01-24 08:08 | Outpatient (CLI) | payer MEDICARE, OTHER, SELFPAY ==
[2019-01-24 09:48] LABS: Alanine Aminotransferase 19 IU/L (9-52); Albumin 4.2 g/dL (3.5-5.0); Albumin Globulin Ratio 1.4 (1.0-2.8); Alkaline Phosphatase 85 U/L (38-126); Aspartate Aminotransferase 28 IU/L (14-36); BUN Creatinine Ratio 21.4 (6-22); Bilirubin Total 0.7 mg/dL (0.2-1.3); Blood Urea Nitrogen 15 mg/dL (7-17); Calcium 9.7 mg/dL (8.4-10.2); Carbon Dioxide 29 mmol/L (22-32); Chloride 102 mmol/L (98-107); Cholesterol 143 mg/dL (140-199); Estimated Glomerular Filt Rate > 60.0 mL/min (>60); Globulin 3.1 g/dL (1.7-4.1); Glucose 116 mg/dL (80-110); HDL Cholesterol 47 mg/dL (40-60); HEMOLYSIS < 15 (0-50); LDL Cholesterol Calculated 61 mg/dL (<100); Potassium 4.2 mmol/L (3.4-5.1); Sodium 142 mmol/L (137-145); Total Protein 7.3 g/dL (6.3-8.2); Triglycerides 177 mg/dL (35-150)
[2019-01-24 09:59] LABS: Free T4, Direct Thyroxine 0.98 ng/dL (0.78-2.19)
[2019-01-24 10:13] LABS: Thyroid Stimulating Hormone 6.49 uIU/mL (0.47-4.68)
== END ==
PROVIDERS: PCP Internal Medicine; Visit Provider Internal Medicine
DX: E03.9 Hypothyroidism, unspecified (principal); E78.5 Hyperlipidemia, unspecified; I10 Essential (primary) hypertension
CPT/HCPCS: 36415; 80053; 80061; 84439; 84443

== ENCOUNTER → 2019-04-19 13:11 | Outpatient (CLI) | payer MEDICARE, OTHER, SELFPAY ==
[2019-04-19 14:11] LABS: B Type Natriuretic Peptide < 100 (<100)
[2019-04-19 14:16] LABS: Alanine Aminotransferase 21 IU/L (<35); Albumin 4.1 g/dL (3.5-5.0); Albumin Globulin Ratio 1.4 (1.0-2.8); Alkaline Phosphatase 77 U/L (38-126); Aspartate Aminotransferase 33 IU/L (14-36); Bilirubin Total 0.4 mg/dL (0.2-1.3); Blood Urea Nitrogen 16 mg/dL (7-17); Calcium 9.5 mg/dL (8.4-10.2); Carbon Dioxide 31 mmol/L (22-32); Chloride 103 mmol/L (98-107); Cholesterol 138 mg/dL (140-199); Estimated Glomerular Filt Rate > 60.0 mL/min (>60); Glucose 101 mg/dL (80-110); HDL Cholesterol 42 mg/dL (40-60); HEMOLYSIS < 15 (0-50); LDL Cholesterol Calculated 56 mg/dL (<100); Potassium 4.3 mmol/L (3.4-5.1); Sodium 142 mmol/L (137-145); Total Protein 7.1 g/dL (6.3-8.2); Triglycerides 202 mg/dL (35-150)
[2019-04-19 14:30] LABS: Free T4, Direct Thyroxine 1.11 ng/dL (0.78-2.19)
== END ==
PROVIDERS: Family Provider Internal Medicine; PCP Internal Medicine; Visit Provider Internal Medicine Cardiovascular Disease
DX: R06.09 Other forms of dyspnea (principal); E03.9 Hypothyroidism, unspecified; E78.5 Hyperlipidemia, unspecified; I10 Essential (primary) hypertension; I48.0 Paroxysmal atrial fibrillation
CPT/HCPCS: 36415; 80053; 80061; 83880; 84439; 84443

== ENCOUNTER → 2019-04-22 08:52 | Outpatient (CLI) | payer MEDICARE, OTHER, SELFPAY ==
--- NOTE | 2019-04-22 | DI.ECHO.S_ITS ---
[facility]---------+ [facility] +---------+ : : [address] : : : : [id number] : : : : Phone: [phone] Echocardiogram Report + + :Name: DAVID SHEPARD Study Date: 04/22/2019 Height: 61 in : :[facility] Weight: 175 lb : : Gender: Female BSA: 1.8 m2 : :: 1935 Age: 83 yrs BP: 128/84 mmHg: :Reason For Study: Dyspnea : :Ordering Physician: Roderick : :Jesús Reed Performed By: Beni Harmon : :Referring: RODERICK REED : + + Interpretation Summary The left ventricle is normal in size. The ejection fraction is estimated to be 60-65%. No significant change in LVEF since previous study. The right ventricle is not well visualized. The right ventricle grossly appears normal in size with probable normal systolic function.There is a pacemaker lead in the right ventricle. No significant valvular pathology seen. The IVC is of normal diameter and collapses greater than 50% with a sniff. This suggests a low right atrial pressure of 3 mm Hg. Procedure: A two-dimensional transthoracic echocardiogram with color flow and Doppler was performed. The study quality was technically difficult. Prior echo performed on 08/14/18. The patient was in normal sinus rhythm during the exam. Left Ventricle: The left ventricle is normal in size. There is normal left ventricular wall thickness. There is no thrombus. A false chord is noted (normal variant). Left ventricular systolic function is normal. The ejection fraction is estimated to be 60-65%. There are no focal wall motion abnormalities. MV E/A: 0.93 Med Peak E' Jak: 5.7 cm/sec E/E' med: 16.0. Right Ventricle: The right ventricle is not well visualized. The right ventricle grossly appears normal in size with probable normal systolic function. There is a pacemaker lead in the right ventricle. Atria: The left atrial size is normal. Right atrial size is normal. There is a catheter/pacemaker lead seen in the right atrium. The interatrial septum is intact with no evidence for an atrial septal defect. Mitral Valve: There is mild mitral annular calcification. There is trace mitral regurgitation. Aortic Valve: The aortic valve is not well visualized. The aortic valve is mildly calcified. There is no hemodynamically significant valvular aortic stenosis. There is trace aortic regurgitation. Compared to the prior echo study, there has been a decrease in the severity of aortic regurgitation. Tricuspid Valve: The tricuspid valve is not well visualized, but is grossly normal. There is trace tricuspid regurgitation. Pulmonary artery pressures cannot be estimated because of the lack of a measurable TR jet velocity. Pulmonic Valve: The pulmonic valve is not well visualized. There is trace pulmonic regurgitation. Great Vessels: The aortic root is normal size. The aortic arch could not be visualized. The pulmonary artery is normal size. The IVC is of normal diameter and collapses greater than 50% with a sniff. This suggests a low right atrial pressure of 3 mm Hg. Pericardium/ Pleura There is no pericardial effusion. There is no pleural effusion. MMode/2D Measurements & Calculations LVIDd: 4.0 cm LVOT diam: 2.0 cm LVIDs: 2.6 cm Ao root diam: 2.9 cm FS: 35.6 % EPSS: 0.69 cm IVSd: 1.0 cm LVPWd: 0.91 cm LV rios. diameter/BSA (cm/m^2): 2.3 LV sys. diameter/BSA (cm/m^2): 1.4 LA A4 area: 18.4 cm2 RA long axis: 4.1 cm LA length (vol): 5.3 cm RA area: 11.7 cm2 RA vol: 28.3 ml RA : 15.9 ml/m2 Doppler Measurements & Calculations Ao V2 max: 112.6 cm/sec LVOT Max Jak: 92.9 cm/sec Ao V2 mean: 73.7 cm/sec LV V1 max P.5 mmHg Ao max P.1 mmHg LV V1 VTI: 19.7 cm Ao mean P.5 mmHg MAYRA(I,D): 2.3 cm2 Ao V2 VTI: 25.3 cm MAYRA(V,D): 2.5 cm2 sev ratio: 0.78 MAYRA indexed to BSA (cm^2/m^2): 1.3 MV E max jak: 90.8 cm/sec PA V2 max: 59.8 cm/sec MV A max jak: 97.9 cm/sec PA V2 mean: 42.5 cm/sec MV E/A: 0.93 PA mean P.83 mmHg Med Peak E' Jak: 5.7 cm/sec PA Accel Time: 0.16 sec E/E' med: 16.0 Lat Peak E' Jak: 6.6 cm/sec E/E' lat: 13.7 E/e' average: 14.9 MV dec time: 0.19 sec SV(LVOT): 59.2 ml Reading Physician:09:31 AM
--- NOTE | 2019-04-26 05:38 | DI.NM.S_ITS ---
DATE OF SERVICE: 04/22/2019 ORDERING PROVIDER: Cherie Howell MD PROCEDURE PERFORMED: Regadenoson vasodilator stress and rest myocardial perfusion imaging with gating to assess ejection fraction and regional wall motion. INDICATIONS: The patient is an 83-year-old female with paroxysmal atrial fibrillation and pacemaker who now has exertional dyspnea. CARDIAC STRESS: Per protocol, 0.4 mg of regadenoson was infused, augmented with handgrip exercise. With this, she had a normal hemodynamic response and achieved a maximum heart rate of 106 BPM (76% of her predicted maximum). She had no chest discomfort or significant dyspnea. Her resting ECG is normal, showing sinus rhythm. There were no significant ST segment changes with stress. There were rare PVCs but no complex ventricular ectopy or other arrhythmia.. Per protocol, 20.6 mCi of technetium-99 Myoview was injected and the patient was imaged 15 minutes later using a gated SPECT acquisition protocol. She returned 3 days later and was reinjected with an additional 25.3 mCi of technetium-99 Myoview and was imaged 30 minutes later, again using a gated SPECT acquisition protocol. FINDINGS: 1. Raw data: There is fair good myocardial tracer uptake with mild breast shadows noted. Lung/heart ratio is normal of 0.36 and a normal TID ratio of 0.94. 2. Quantitated gated SPECT: Post-stress ejection fraction is estimated at 93%, likely an overestimate because of relatively small left ventricular volumes. There are no regional wall motion abnormalities. The resting ejection fraction is also estimated at 93%, again an overestimate, with a resting end-diastolic volume of 40 mL. 3. Myocardial perfusion imaging: Post-stress supine images show a normal perfusion pattern without any perfusion defects, supported by normal perfusion imaging in the prone position. The resting images show an identical perfusion pattern without any areas of improvement. CONCLUSION: 1. Normal myocardial perfusion study. 2. No evidence of myocardial ischemia or previous myocardial infarction. 3. High-normal left ventricular systolic function with relatively low left ventricular volumes. 4. No angina or ECG evidence of ischemia with regadenoson vasodilator stress. Thi Sevilla - RS/alfred/kv doc#: [id number]/job#: [id number] dd: 04/25/2019 16:55:00 dt: 04/26/2019 05:29:00 DICTATING MD/COPIES TO: Aurelio Hughes MD ; Cherie Howell MD COPIES MNE: JORDAN ; JUSTINO
== END ==
PROVIDERS: PCP Internal Medicine; Visit Provider Internal Medicine Cardiovascular Disease
DX: I48.0 Paroxysmal atrial fibrillation (principal); R06.09 Other forms of dyspnea; Z95.0 Presence of cardiac pacemaker
CPT/HCPCS: 78452; 93016; 93017; 93018; 93306; A9502; J2785

== ENCOUNTER → 2019-04-26 10:28 | Outpatient (CLI) | payer MEDICARE, OTHER, SELFPAY ==
--- NOTE | 2019-05-03 16:18 | P.PFT.S_ITS ---
Pulmonary Function Test Referral & Results Date Patient Seen: 04/26/19 Requesting provider: Cherie Howell Results: The spirometry demonstrates an FVC of 1.62 L which is 73% of predicted. The FEV1 was measured at 1.28 L which is 78% of predicted. The FEV1/FVC ratio was 79 which is 107% of predicted. Following the administration of bronchodilator there was no appreciable change. Lung volumes show an SVC of 1.52 L which is 64% of predicted. The diffusing capacity was measured at 12.3 which is 60% of predicted. No hemoglobin value was provided, so no correction for potential anemia could be made, if appropriate. The maximum voluntary ventilation was reduced Interpretation: This study demonstrates mild obstructive lung disease based on reduction FEV1 without evidence of benefit following bronchodilator administration There is also mild to moderate restrictive lung disease present based on reduction SVC There is also [id number] reduction in diffusing capacity suggesting elemen t of significant disease at the capillary alveolar level Overall this is consistent with a diagnosis of COPD although the amount of restrictive lung disease present is a bit out of proportion to the obstructive which suggest perhaps more restrictive lung disease such as some sort of interstitial fibrosis etcetera Clinical correlation suggested
== END ==
PROVIDERS: PCP Internal Medicine; Visit Provider Internal Medicine Cardiovascular Disease
DX: J98.8 Other specified respiratory disorders (principal); R06.09 Other forms of dyspnea; Z87.891 Personal history of nicotine dependence
CPT/HCPCS: 94060; 94726; 94729

== ENCOUNTER → 2019-05-28 10:36 | Outpatient (CLI) | payer MEDICARE, OTHER, SELFPAY ==
--- NOTE | 2019-05-28 10:38 | DI.CT.S_ITS ---
PROCEDURE: CT CHEST HIGH RESOLUTION INDICATIONS: restrictive lung disease TECHNIQUE: Noncontrast 1.0 and 5.0 mm thick contiguous axial sections from the pulmonary apex to the posterior costophrenic angles, with 7 mm thick coronal and sagittal MIP reformats. 1 mm thick dynamic expiratory images acquired through the upper, mid, and lower lungs. 1.0 mm thick axial sections acquired from the alvaro to the posterior costophrenic angles in the prone end-inspiration position. For radiation dose reduction, the following was used: automated exposure control, adjustment of mA and/or kV according to patient size. COMPARISON: None. FINDINGS: Image quality: Mildly degraded by large body habitus. Lungs: No evidence of emphysematous change or pulmonary fibrosis. No bronchiectasis or evidence of chronic bronchitis is found. Note is made of a thin-walled small posterior right lower lobe pneumatocele measuring only 2.1 cm in maximal dimension (series 2 image 226) and no inflammatory process appears present Pleura: No pleural effusions or pneumothorax. Mediastinum: Heart size is normal. No pericardial effusion. Thoracic aorta and central pulmonary arteries are normal in size. Esophagus is normal in caliber. A dual-chamber cardiac pacemaking device is in place with leads in normal position, from left-sided approach. Bones and chest wall: No suspicious bony lesions. No vertebral body compression fractures. Abdomen: Visualized upper abdominal solid organs and bowel loops appear normal. IMPRESSION: Large body habitus, otherwise normal examination in terms of evidence of restrictive lung disease. Cardiac pacemaking device with a dual-chamber lead positioning normal. Dictated by: Kenneth Nj M.D. on 05/28/2019 at 13:25 Approved by: Kenneth Nj M.D. on 05/28/2019 at 13:32
== END ==
PROVIDERS: PCP Internal Medicine; Referring Provider Internal Medicine; Visit Provider Internal Medicine
DX: J98.4 Other disorders of lung (principal); Z95.0 Presence of cardiac pacemaker
CPT/HCPCS: 71250

== ENCOUNTER → 2019-08-11 10:16 | Outpatient (CLI) | payer MEDICARE, OTHER, SELFPAY ==
--- NOTE | 2019-08-11 10:19 | DI.RAD.S_ITS ---
PROCEDURE: XR CHEST 2V INDICATIONS: Increasing dyspnea w/cough TECHNIQUE: 2 views of the chest were acquired. COMPARISON: [facility], CT, CT CHEST HIGH RESOLUTION, 05/28/2019, 10:35. [facility], CR, XR CHEST 2V, 12/17/2018, 10:36. FINDINGS: Surgical changes and devices: A left-sided cardiac pacer/defibrillator is evident. Lungs and pleura: The aeration of the lungs is similar to the previous exams. There is no focal consolidation, effusion, or pneumothorax. Mediastinum: Mediastinal contours are normal. Heart size is normal. There is aortic atherosclerosis. Bones and chest wall: No suspicious bony abnormalities. Soft tissues appear unremarkable. IMPRESSION: Stable chest. No acute cardiopulmonary process is evident. Dictated by: Humphrey Streeter M.D. on 08/11/2019 at 9:42 Approved by: Humphrey Streeter M.D. on 08/11/2019 at 9:43
[2019-08-11 10:43] LABS: Add Manual Diff / Slide Review NO; Basophils Absolute Auto 100 /uL (0-100); Basophils Percent Auto 1.1 % (0-2); Eosinophils Absolute Auto 600 /uL (0-450); Eosinophils Percent Auto 4.9 % (2-4); Hematocrit 42.9 % (36-46); Hemoglobin 14.1 g/dL (12.0-16.0); Lymphocytes Absolute Auto 2300 /uL (1100-4500); Lymphocytes Percent Auto 18.7 % (25-40); Mean Corpuscular Hemoglobin 30.4 PG (26-34); Monocytes Absolute Auto 800 /uL (0-900); Monocytes Percent Auto 6.4 % (3-14); Neutrophils Absolute Auto 8400 /uL (1500-7000); Neutrophils Percent Auto 68.9 % (50-75); Platelet Count 279 X10^3/uL (150-400); Red Blood Cell Count 4.66 X10^6/uL (4.0-5.2); Red Cell Distribution Width 13.9 % (11.6-14.8); White Blood Cell Count 12.2 X10^3/uL (4.5-11.0)
== END ==
PROVIDERS: PCP Internal Medicine; Referring Provider Internal Medicine; Visit Provider Physician Assistant
DX: R05 Cough (principal); R06.00 Dyspnea, unspecified; Z95.810 Presence of automatic (implantable) cardiac defibrillator
CPT/HCPCS: 36415; 71046; 85025

== ENCOUNTER 2019-11-12 09:12 | Outpatient (RCR) | payer MEDICARE, OTHER, SELFPAY ==
--- NOTE | 2019-11-12 12:55 | ST.OPIE ---
Visit Care Team Role Provider Type Godfrey Liang MD Primary Care Provider Physician Specialty: Internal Medicine Address: [address] [place] [address], [address], [place], [address] Email: [email or web address] Jimmy Bustos MD Attending Provider Non-Staff Referring Provider Specialty: Pulmonology Address: [address] [place] [address], [id number] Email: Speech-Language Pathology Initial Evaluation AURIST Clinical Swallow Evaluation Start: 11/12/19 12:31 Freq: Status: Active Protocol: Document 11/12/19 12:31 LNK (Rec: 11/12/19 12:52 LNK [id number]) Clinical Swallow Evaluation Session Time Visit Start Time 09:30 Visit Stop Time 10:30 Total Visit Minutes 60 Visit Information Visit Number 1 Plan of Care Dates 11/12/19-02/12/[address] Liang Reason for Referral dysphagia Setting Assessment Location Outpatient Care Visit Type Note Type Initial Evaluation Next Note Type Next Note Type Re-Evaluation Patient Information Identification Type Name,Picture History Thi Sevilla was seen for a clinical swallow evaluation. Thi wa referred by Dr Liang . Her gas roller operator also recommended a swallowing evaluation. The gas roller operator had Thi repeat PFTs and after further assessment feels like she has some sort of neuromuscular disorder causing or behind the clear restrictive lung disease is present on her PFTs. He also suggested that she has got some element of chronic aspiration ongoing recommended that Thi be seen by speech therapy. Additionally, Thi has been referred to a neurologist at [facility]. Thi noted she has an appointment soon. Subjective Observations Thi was short of breath when she reached to treatment room . She noted that this SOB has been going on since around last November. Evaluation Liquids Trialed Thin Solids Trialed Regular Administration Type Cup Single Sip,Controlled Cup Sip,Cup Consecutive Sips,Self- Feeding Oral Impairment Within Normal Limits Oral Phase Comments OM examination indicated structures and function to be WFL. Pt has upper partial denture. She is missing molars bilaterally on the lower arch. Pt lingual ROM, strength were WNL. No noted tongue fasciculation. Speed, ROM and strength of OM structures WNL. Pharyngeal Impairment Within Functional Limits Pharyngeal Strategies Sitting Upright (90 deg) Pharyngeal Phase Comments Hyolaryngeal elevation was adequate upon palpation for height and forward excursion. No audible swallow noted, no wet voicing following swallow. There was, however, an immediate throat clear as well as a delayed cough x2 observed with thin liquids/ water. Given Thi's recurring bronchitis, her reduced pulmonary function/SOB, ans suspected neurological etiology to her symptoms, a Modified Barium Swallow Study with Speech is recommended to more clearly assess the pharyngeal phase of Thi's swallow. Diet Recommendations Comments No change in diet at this time Treatment Plan Therapy Recommendations Recommend MBSS with speech therapy Dysphagia Goals To be determined following MBSS Referrals/Other Recommended Referrals Primary Care Physician, Neurology
--- NOTE | 2020-05-06 15:30 | ST.OPDS ---
Visit Care Team Role Provider Type Godfrey Liang MD Primary Care Provider Physician Address: [address] [place] [address], [address], [place], [address] Jimmy Bustos MD Attending Provider Non-Staff Referring Provider Address: [address] [place] [address], [place], [address] COMPTOMETRIST Treatment Note COMPTOMETRIST Treatment Note Start: 11/12/19 12:31 Freq: Status: Active Protocol: Document 05/06/20 15:28 LNK (Rec: 05/06/20 15:30 LNK [id number]) Speech Pathology Treatment Note Visit Type Note Type Discharge Summary General Information General Information Thi Sevilla was seen for a clinical swallow evaluation. Thi wa referred by Dr liang . Her Syrup Machine Laborer also recommended a swallowing evaluation. The rehab trainer had thi repeat PFTs and after further assessment feels like she has some sort of neuromuscular disorder causing or behind the clear restrictive lung disease is present on her PFTs. He also suggested that she has got some element of chronic aspiration ongoing recommended that Thi be seen by speech therapy. Additionally, Thi has been referred to a neurologist at [facility]. Thi noted she has an appointment soon. Subjective Observations/Patient Presentation Hyolaryngeal elevation was adequate upon palpation for height and forward excursion. No audible swallow noted, no wet voicing following swallow. There was, however, an immediate throat clear as well as a delayed cough x2 observed with thin liquids/ water. Given Thi's recurring bronchitis, her reduced pulmonary function/SOB, ans suspected neurological etiology to her symptoms, a Modified Barium Swallow Study with Speech is recommended to more clearly assess the pharyngeal phase of Thi's swallow. Objective Treatment Activities Pt has not returned to the clinic D/C Plan Therapy Recommendations Discharge from Speech Therapy
== END 2020-05-13 08:46 ==
LOC: SP 09:12
PROVIDERS: PCP Internal Medicine; Referring Provider Internal Medicine Pulmonary Disease; Visit Provider Internal Medicine Pulmonary Disease
DX: R13.12 Dysphagia, oropharyngeal phase (principal)
CPT/HCPCS: 92610

== ENCOUNTER → 2019-12-20 08:04 | Outpatient (CLI) | payer MEDICARE, OTHER, SELFPAY ==
--- NOTE | 2019-12-20 08:05 | DI.RAD.S_ITS ---
PROCEDURE: FL BARIUM SWALLOW W SPEECH INDICATIONS: dysphagia evaluation COMPARISON: None. TECHNIQUE: Examination was conducted in conjunction with speech pathology per standard protocol. In the lateral projection, filming was performed of the patient swallowing. AP projection filming may also be performed with patient swallowing. COMPARISON: FINDINGS: Function: The oral preparatory phase appears normal, with proper containment. The subsequent oral propulsive phase, pharyngeal phase, and esophageal phase of swallowing also appear normal with thick liquid and with solid barium preparations. Penetration with clearance is noted with thin liquids. No pathologic vallecular pooling. Morphology: No cricopharyngeal bar is identified. No cervical esophageal webs. No Zenker's diverticulum. No strictures. IMPRESSION: Layngeal penetration with clearance noted with thin liquids. Please see speech pathologist report for further details. Dictated by: Hieu Aragon M.D. on 12/20/2019 at 10:56 Approved by: Hieu Aragon M.D. on 12/20/2019 at 11:00
--- NOTE | 2019-12-20 15:17 | ST.SWALLOW ---
Visit Care Team Role Provider Type Godfrey Liang MD Attending Provider Physician Primary Care Provider Referring Provider Specialty: Internal Medicine Address: [address] [place] [address], [address], [place], [address] Email: [email or web address] Modified Barium Swallow Study AUTOMOTIVE PARTS SALESPERSON Modified Barium Swallow Study Start: 12/20/19 13:49 Freq: Status: Active Protocol: Document 12/20/19 13:50 LL (Rec: 12/20/19 15:04 LL [id number]) Modified Barium Swallow Study Total Time Visit Start Time 08:30 Visit Stop Time 09:12 Total Visit Minutes 42 Referral Referring Physician Godfrey Liang MD Reason for Referral Dysphagia Setting Setting Outpatient Care Patient Information Identification Type Name Patient History Thi is an 84-year-old female with complaints of recurring bronchitis and throat clearing / coughing with foods and liquids. Thi received a clinical swallow evaluation on 11/12/19 and presented with immediate throat clearing and delayed coughing with thin liquids. For those reasons, it was recommended that she receive a modified barium swallow study (MBS) to determine least restrictive diet and risk for aspiration/ aspiration pneumonia. Per clinical swallow evaluation report, Thi?s greige goods marker had her repeat several PFTs and after further assessment, felt that she may have some sort of neuromuscular disorder causing the clear restrictive lung disease that was present on her PFTs. The greige goods marker also suggested that she may have some element of chronic aspiration. Further medical history was obtained prior to MBS procedure. Thi reported that she has had around 3 recurrent bronchitis episodes since July 2019. She was prescribed Prednisone to treat her recurrent bronchitis, however reported that her dosage was reduced last Monday and has noticed increased wheezing and more frequent throat clearing / coughing. She reported 2 choking incidents since clinical swallow evaluation, one with thin liquid and the other with her saliva. Subjective Observations Thi arrived on time and provided case history. She was able to follow all instructions. Patient Positioning Position View Lat-A/P Imaging Lateral View Textures Administered Trials Presented Thin Liquid via Spoon,Thin Liquid via Cup,Thin Liquid via Straw,[place] Liquid via Spoon ,[place] Liquid via Cup,Honey Liquid via Spoon,Pudding Thick Liquid via Spoon,Regular Textures,Barium Tablet Oral Phase Source: MBSIMP (TM) (C) Bolus Specific Scoring Grid Lip Closure WFL Tongue Control During Bolus Hold WFL Bolus Prep/Mastication Minimal Impairment Bolus Transport/Lingual Motion Minimal Impairment A/P Lingual Propulsion Delay Yes: 1-2 second delay - minimal Oral Residue Minimal Impairment Residue Clearing WFL Nasal Regurgitation No Additional Oral Phase Observations Oral Peripheral Exam: Symmetrical structures WFL of strength, coordination, and ROM. Thi has an upper partial denture and missing molars bilaterally on the lower arch. No tongue fasciculations were observed. Oral Phase: Minimally impaired . Minimal oral residue present which cleared with subsequent swallows, not abnormal for intake of barium contrast. Minimally delayed initiation of tongue motion and increased mastication time likely due to incomplete dentition (e.g., missing molars). Pharyngeal Phase Source: MBSIMP (TM) (C) Bolus Specific Scoring Grid Delayed Initiation of Pharyngeal Swallow No Soft Palate Elevation WFL Tongue Base Strength/Range of Motion Minimal Impairment Residue Along the Tongue Base Yes: minimal Clearance of Residue Along Tongue Base WFL Laryngeal Elevation Mild Impairment Anterior Hyoid Movement Mild Impairment Epiglottic Range of Motion Mild Impairment Vallecular Residue Yes: mild Clearance of Vallecular Residue Mild Impairment Laryngeal Vestibular Closure Mild Impairment Pharyngeal Stripping Wave WFL Posterior Pharyngeal Wall Residue Yes: minimal Clearance of Posterior Pharyngeal Wall WFL Residue Upper Esophageal Sphincter Opening WFL Residue in the Pyriform Sinuses Yes: minimal Clearance of Residue in the Pyriform WFL Sinuses Pharyngoesophageal Backflow Observed No Additional Pharyngeal Phase Observations Thi presented with mildly reduced laryngeal elevation and anterior hyoid movement resulting in incomplete epiglottic inversion. Due to partial epiglottic inversion, penetration (above the level of the vocal folds) with clearance was observed with all trials of thin liquid (e.g ., small cup sip,normal cup sip, straw sip, and 2-3 consecutive cup sips). Also, due to partial epiglottic inversion, Thi presented with mild vallecular residue and trace amounts of that residue were observed to be pooling into the pyriform sinuses after the swallow. This trace amount of pooling from the valleculae to the pyriform sinuses decreases Thi?s airway protection and increases her risk for penetration and/or aspiration after the swallow. A second dry swallow (double swallow) and throat clear with reswallow were implemented to increase clearance of vallecular residue to improve Thi?s airway protection. Both compensatory swallow strategies resulted in successful increased airway protection. Upon close video review, no aspiration was observed. A/P View Textures Administered Trials Presented Barium Tablet A/P View Observations Additional Observations A/P view with barium tablet was attempted, however unable to fully assess esophageal function and clearance in the upright position. Thi swallowed the barium tablet before video footage started. Per radiologist report, esophageal phase of swallowing appeared normal with thick liquid and with solid barium preparations. Clinical Impressions Dysphagia Type Mild oropharyngeal dysphagia Findings See above oral and pharyngeal observation summaries. Recommend that Thi continue to consume regular texture diet with thin liquids with use of several compensatory swallow strategies to clear pharyngeal residue(s), increase airway protection, and reduce risk for aspiration / aspiration pneumonia. AUTOMOTIVE PARTS SALESPERSON reviewed MBS results and recommendations with Thi, who verbalized understanding with the information provided. Recommended swallow strategies : small bites/sips, upright at 90 degrees for all oral intake, double swallow and/or throat clear with reswallow after every 1-2 bites/sips. Rehabilitation Potential Good Patient Appropriate for Therapy Yes Recommendations Diet Liquids Order Thin Diet Order Regular Medication Recommendation As Tolerated,Whole,One at a Time Additional Dietary Needs Controlled Sips Aspiration Precautions Recommended Precautions Upright at 90 Degrees,Small Bites/Sips,Effortful Swallow, Double Swallow Treatment Plan Therapy Recommendations Inpatient Speech Therapy Recommended Referrals Neurology Compensatory Strategies Recommendations Sitting Upright (90 deg), Double Swallow,Small Bites and Sips Additional Compensatory Strategies throat clear and reswallow Recommended after every 1-2 bites / sips. Short Term Goals * Thi will tolerate regular texture diet with thin liquids without any overt s/sx of aspiration. * Thi will perform safe swallow strategies independently to increase safety with oral intake. *Thi will demonstrate understanding of MBS results, diet recommendations, and compensatory swallow strategies to improve swallow safety. Ug Designer Goals * Thi will tolerate least restrictive diet to meet her nutrition and hydration needs. Additional Recommendations/Comments *Recommend speech therapy follow-up x 1-3 to review MBS results and train/educate compensatory swallow strategies / aspiration precautions. *Recommend follow-up with primary care physician and greige goods marker. Also recommend that Thi visit with a neurologist if she has not done so already. Thi reported that she had a neurology appointment scheduled soon after initial swallow evaluation, however did not report neurology appointment / results with this AUTOMOTIVE PARTS SALESPERSON.
== END ==
PROVIDERS: PCP Internal Medicine; Referring Provider Internal Medicine; Visit Provider Internal Medicine
DX: R13.10 Dysphagia, unspecified (principal); G70.9 Myoneural disorder, unspecified; T17.908S Unspecified foreign body in respiratory tract, part unspecified causing other injury, sequela
CPT/HCPCS: 74230; 92611

== ENCOUNTER → 2020-01-10 11:41 | Outpatient (CLI) | payer MEDICARE, OTHER, SELFPAY ==
[2020-01-10 12:37] LABS: Add Manual Diff / Slide Review NO; Basophils Absolute Auto 100 /uL (0-100); Basophils Percent Auto 0.9 % (0-2); Eosinophils Absolute Auto 100 /uL (0-450); Eosinophils Percent Auto 0.8 % (2-4); Hematocrit 40.2 % (36-46); Hemoglobin 13.2 g/dL (12.0-16.0); Lymphocytes Absolute Auto 3100 /uL (1100-4500); Lymphocytes Percent Auto 23.1 % (25-40); Mean Corpuscular HGB Conc 32.8 % (30-36); Mean Corpuscular Hemoglobin 30.4 PG (26-34); Mean Corpuscular Volume 92.7 fL (80-100); Monocytes Absolute Auto 900 /uL (0-900); Monocytes Percent Auto 6.5 % (3-14); Neutrophils Absolute Auto 9300 /uL (1500-7000); Neutrophils Percent Auto 68.7 % (50-75); Platelet Count 259 X10^3/uL (150-400); Red Blood Cell Count 4.34 X10^6/uL (4.0-5.2); Red Cell Distribution Width 13.7 % (11.6-14.8); White Blood Cell Count 13.5 X10^3/uL (4.5-11.0)
[2020-01-10 13:08] LABS: Erythrocyte Sedimentation Rate 37 MM/HR (0-20)
[2020-01-10 13:40] LABS: Alanine Aminotransferase 26 IU/L (<35); Albumin 3.8 g/dL (3.5-5.0); Albumin Globulin Ratio 1.5 (1.0-2.8); Alkaline Phosphatase 78 U/L (38-126); Aspartate Aminotransferase 27 IU/L (14-36); Bilirubin Total 0.6 mg/dL (0.2-1.3); Blood Urea Nitrogen 13 mg/dL (7-17); C-Reactive Protein Quant 3.2 mg/dL (<1.0); Calcium 9.3 mg/dL (8.4-10.2); Carbon Dioxide 29 mmol/L (22-32); Chloride 104 mmol/L (98-107); Estimated Glomerular Filt Rate > 60.0 mL/min (>60); Globulin 2.6 g/dL (1.7-4.1); Glucose 100 mg/dL (80-110); HEMOLYSIS < 15 (0-50); Potassium 4.3 mmol/L (3.4-5.1); Sodium 141 mmol/L (137-145); Total Protein 6.4 g/dL (6.3-8.2)
[2020-01-10 13:56] LABS: Free T4, Direct Thyroxine 1.38 ng/dL (0.78-2.19)
[2020-01-10 14:10] LABS: Thyroid Stimulating Hormone 3.06 uIU/mL (0.47-4.68)
== END ==
PROVIDERS: PCP Internal Medicine; Referring Provider Internal Medicine; Visit Provider Internal Medicine
DX: E03.9 Hypothyroidism, unspecified (principal); E78.5 Hyperlipidemia, unspecified; I10 Essential (primary) hypertension; I49.5 Sick sinus syndrome
CPT/HCPCS: 36415; 80053; 84439; 84443; 85025; 85651; 86140

== ENCOUNTER → 2020-05-27 17:20 | Outpatient (CLI) | payer MEDICARE, OTHER, SELFPAY ==
[2020-05-27] MEDS: COVID-19 VACC #1, MRNA(MOD) 100 MCG/0.5 ML VIAL IM (17:27)
== END ==
PROVIDERS: PCP Internal Medicine; Visit Provider Internal Medicine
DX: Z23 Encounter for immunization (principal)
CPT/HCPCS: 0011A; 91301

== ENCOUNTER → 2020-06-25 09:46 | Outpatient (CLI) | payer MEDICARE, OTHER, SELFPAY ==
[2020-06-25] MEDS: COVID-19 VACC #2, MRNA(MOD) 100 MCG/0.5 ML VIAL IM (09:51)
== END ==
PROVIDERS: PCP Internal Medicine; Visit Provider Internal Medicine
DX: Z23 Encounter for immunization (principal)
CPT/HCPCS: 0012A; 91301

== ENCOUNTER → 2020-08-10 09:20 | Outpatient (CLI) | payer MEDICARE, OTHER, SELFPAY ==
[2020-08-10 10:51] LABS: Alanine Aminotransferase 18 IU/L (<35); Albumin 3.9 g/dL (3.5-5.0); Albumin Globulin Ratio 1.4 (1.0-2.8); Alkaline Phosphatase 77 U/L (38-126); Aspartate Aminotransferase 28 IU/L (14-36); BUN Creatinine Ratio 24.6 (6-22); Bilirubin Total 0.3 mg/dL (0.2-1.3); Blood Urea Nitrogen 17 mg/dL (7-17); Calcium 9.5 mg/dL (8.4-10.2); Carbon Dioxide 27 mmol/L (22-32); Chloride 104 mmol/L (98-107); Cholesterol 148 mg/dL (140-199); Estimated Glomerular Filt Rate > 60.0 mL/min (>60); Globulin 2.8 g/dL (1.7-4.1); Glucose 120 mg/dL (80-110); HDL Cholesterol 51 mg/dL (40-60); HEMOLYSIS < 15 (0-50); LDL Cholesterol Calculated 57 mg/dL (<100); Potassium 4.1 mmol/L (3.4-5.1); Sodium 138 mmol/L (137-145); Total Protein 6.7 g/dL (6.3-8.2); Triglycerides 198 mg/dL (35-150)
[2020-08-10 11:02] LABS: Free T4, Direct Thyroxine 0.98 ng/dL (0.78-2.19)
[2020-08-10 11:16] LABS: Thyroid Stimulating Hormone 6.07 uIU/mL (0.47-4.68)
[2020-08-10 12:20] LABS: COVID19 -Nasal RAPID Negative (Negative)
== END ==
PROVIDERS: Student in an Organized Health Care Education/Training Program; PCP Internal Medicine; Referring Provider Internal Medicine; Visit Provider Internal Medicine
DX: E03.9 Hypothyroidism, unspecified (principal); E78.5 Hyperlipidemia, unspecified; I10 Essential (primary) hypertension; Z01.812 Encounter for preprocedural laboratory examination; Z20.822 Contact with and (suspected) exposure to COVID-19
CPT/HCPCS: 36415; 80053; 80061; 84439; 84443; 87635; C9803

== ENCOUNTER 2020-08-11 11:59 | Day surgery (SDC) | payer MEDICARE, OTHER, SELFPAY ==
[2020-08-11 12:24] VITALS: BP 144/63; PULSE 66; RESP 16; TEMP 36.6; O2SAT 97
[2020-08-11 12:35] VITALS: BMI 35.2
[2020-08-11] MEDS: LACTATED RINGERS 1,000 ML 100 ML IV (12:35)
--- NOTE | 2020-08-11 13:19 | SUR.OPER ---
Supine on padded OR bed, head on pillow, nonoperative arm secured on padded arm board at <90 degrees abduction, operative arm on hand table, legs uncrossed, safety belt at thigh, tape over blanket over lower legs.
--- NOTE | 2020-08-11 13:24 | PM.PREOP ---
Pre-operative Note COVID-19 COVID-19 status: Negative Interval Note History & Physical reviewed/Exam performed by Physician: Yes Changes to H&P: No
--- NOTE | 2020-08-11 13:24 | PM.OP.1 ---
Operative Date/Time/Diagnoses Date of procedure: 08/11/20 Time of procedure: 13:24 Pre-op diagnosis: Right carpal tunnel syndrome Post-op diagnosis: same Procedure & Clinicians Procedure: right carpal tunnel release Same procedure as scheduled: Yes Indications: this 85-year-old female with severe numbness in her right hand she is brought to an operating room for a right carpal tunnel release. Surgeon: Nicol Victoria Anesthesia Type: Other ( IV regional) Operative Notes Findings: moderate to severe median nerve compression Closure Type: primary Estimated Blood Loss (mL): 20 Blood products transfused: none Procedure in detail: Patient is brought the operating room. She was given IV antibiotics and a time-out was performed. She had an IV regional placed. The right upper extremities prepped draped standard sterile fashion. An incision was made over the carpal ligament. Dissection was carried out through skin and subcutaneous tissues. A small alms retractor was placed. Distal extent of the transverse carpal ligament was identified and incised sharply. Hemostat was placed deep to the transverse carpal ligament and a 15 blade was used to incise the transverse carpal ligament. Dissection was carried proximally and a portion of the antebrachial fascia was released subcutaneously. There was moderate compression of the median nerve. The motor branch was noted to be intact distally. There was no other abnormalities in the carpal canal. The wound was irrigated. The wound was injected with Marcaine and closed with interrupted nylon. The wound was dressed sterilely. The patient transferred recovery room in satisfactory condition. Complications none. Complications: none Post-operative Condition: stable Disposition: same day surgery Plan for aftercare: use brace full-time for 10 days.
[2020-08-11] MEDS: CEFAZOLIN 1 GM VIAL IV (13:59)
[2020-08-11] MEDS: BUPIVACAINE 0.5% (PF) VIAL 30 ML INJ (14:10)
[2020-08-11 14:13] VITALS: BP 97/45; PULSE 70; RESP 12; TEMP 36.4; O2SAT 96
[2020-08-11 14:17] VITALS: BP 111/58; PULSE 68; RESP 13; O2SAT 96
[2020-08-11 14:22] VITALS: BP 108/53; PULSE 69; RESP 13; O2SAT 96
[2020-08-11 14:26] VITALS: BP 114/50; PULSE 68; RESP 12; O2SAT 97
[2020-08-11 14:29] VITALS: BP 121/54; PULSE 67; RESP 16; TEMP 36.2; O2SAT 98
== END 2020-08-11 14:40 | disposition home or self-care (01) ==
PROVIDERS: PCP Internal Medicine; Referring Provider Internal Medicine; Visit Provider Orthopaedic Surgery
PROC: (CPT 64721; principal; 2020-08-11 15:15)
DX: G56.01 Carpal tunnel syndrome, right upper limb (principal); E03.9 Hypothyroidism, unspecified; E78.00 Pure hypercholesterolemia, unspecified; I10 Essential (primary) hypertension; I48.91 Unspecified atrial fibrillation
CPT/HCPCS: 64721; 82962; J0690; J2250; J2704; J3010

== ENCOUNTER → 2020-09-09 10:53 | Outpatient (CLI) | payer MEDICARE, OTHER, SELFPAY ==
--- NOTE | 2020-09-09 10:59 | DI.RAD.S_ITS ---
PROCEDURE: XR CHEST 2V INDICATIONS: lung disease TECHNIQUE: 2 views of the chest were acquired. COMPARISON: [facility], CR, XR CHEST 2V, 08/11/2019, 10:13. 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 Lungs and pleura: Lungs are clear. No pleural effusions or pneumothorax. Mediastinum: Mediastinal contours are normal. Heart size is normal. Atherosclerotic vascular calcification noted in the aortic arch. Bones and chest wall: No suspicious bony abnormalities. Soft tissues appear unremarkable. IMPRESSION: No acute cardiopulmonary findings Dictated by: Osiel Dominguez M.D. on 09/09/2020 at 10:54 Approved by: Osiel Dominguez M.D. on 09/09/2020 at 10:57
[2020-09-09 11:48] LABS: COVID19 -Nasal RAPID Negative (Negative)
== END ==
PROVIDERS: PCP Internal Medicine; Referring Provider Internal Medicine; Visit Provider Internal Medicine
DX: J98.4 Other disorders of lung (principal)
CPT/HCPCS: 71046; 87635; C9803

== ENCOUNTER → 2020-09-10 08:50 | Outpatient (CLI) | payer MEDICARE, OTHER, SELFPAY ==
--- NOTE | 2020-09-16 11:11 | PM.PFT.1 ---
Pulmonary Function Test Referral & Results Date Patient Seen: 09/10/20 Requesting provider: Mark Bustos Results: The spirometry demonstrates an FVC of 1.40 L which is 66% of predicted. The FEV1 was measured at 1.15 L which is 74% of predicted. The FEV1/FVC ratio was 82 which is 112% of predicted. Following the administration of bronchodilator there was a 27% improvement in FEF 25-75%. Lung volumes show an SVC of 1.63 L which is 71% of predicted. The diffusing capacity was measured at 12.08 which is 59% of predicted. No hemoglobin value was provided, so no correction for potential anemia could be made, if appropriate. The maximum voluntary ventilation was reduced Interpretation: This study demonstrates perhaps mild obstructive lung disease based on reduction FEV1 and evidence of minimal improvement after bronchodilator in small airway flow as above. However FEV1/FVC ratio is preserved There is also mild reduction in FVC suggesting mild restrictive lung disease There is also moderately severe reduction in diffusing capacity suggesting disease at the capillary alveolar level Compared to PFTs performed in April of 2019, current study is essentially unchanged
== END ==
PROVIDERS: PCP Internal Medicine; Referring Provider Internal Medicine Pulmonary Disease; Visit Provider Internal Medicine Pulmonary Disease
DX: J98.4 Other disorders of lung (principal); Z87.891 Personal history of nicotine dependence
CPT/HCPCS: 94060; 94726; 94729

== ENCOUNTER → 2020-10-30 12:17 | Outpatient (CLI) | payer MEDICARE, OTHER, SELFPAY ==
[2020-10-30 14:46] LABS: BUN Creatinine Ratio 21.7 (6-22); Blood Urea Nitrogen 13 mg/dL (7-17); Calcium 9.3 mg/dL (8.4-10.2); Carbon Dioxide 28 mmol/L (22-32); Chloride 105 mmol/L (98-107); Estimated Glomerular Filt Rate > 60.0 mL/min (>60); Glucose 151 mg/dL (80-110); HEMOLYSIS < 15 (0-50); Potassium 4.1 mmol/L (3.4-5.1); Sodium 140 mmol/L (137-145)
[2020-10-30 15:18] LABS: Free T4, Direct Thyroxine 1.41 ng/dL (0.78-2.19)
[2020-10-30 15:33] LABS: Thyroid Stimulating Hormone 0.225 uIU/mL (0.47-4.68)
== END ==
PROVIDERS: PCP Internal Medicine; Referring Provider Internal Medicine; Visit Provider Internal Medicine
DX: E03.9 Hypothyroidism, unspecified (principal)
CPT/HCPCS: 36415; 80048; 84439; 84443

== ENCOUNTER → 2021-06-09 09:00 | Outpatient (CLI) | payer MEDICARE, OTHER, SELFPAY ==
[2021-06-09 10:44] LABS: Alanine Aminotransferase 26 IU/L (<35); Albumin Globulin Ratio 1.4 (1.0-2.8); Alkaline Phosphatase 81 U/L (38-126); Aspartate Aminotransferase 41 IU/L (14-36); BUN Creatinine Ratio 19.7 (6-22); Bilirubin Total 0.5 mg/dL (0.2-1.3); Blood Urea Nitrogen 14 mg/dL (7-17); Calcium 9.3 mg/dL (8.4-10.2); Carbon Dioxide 28 mmol/L (22-32); Chloride 105 mmol/L (98-107); Cholesterol 145 mg/dL (140-199); Estimated Glomerular Filt Rate > 60.0 mL/min (>60); Globulin 2.8 g/dL (1.7-4.1); Glucose 129 mg/dL (80-110); HDL Cholesterol 50 mg/dL (40-60); HEMOLYSIS < 15 (0-50); LDL Cholesterol Calculated 59 mg/dL (<100); Potassium 4.3 mmol/L (3.4-5.1); Sodium 140 mmol/L (137-145); Total Protein 6.8 g/dL (6.3-8.2); Triglycerides 180 mg/dL (35-150)
[2021-06-09 10:54] LABS: Free T4, Direct Thyroxine 1.33 ng/dL (0.78-2.19)
[2021-06-09 11:07] LABS: Thyroid Stimulating Hormone 1.37 uIU/mL (0.47-4.68)
== END ==
PROVIDERS: PCP Internal Medicine; Referring Provider Internal Medicine; Visit Provider Internal Medicine
DX: E03.9 Hypothyroidism, unspecified (principal); E78.5 Hyperlipidemia, unspecified; I10 Essential (primary) hypertension; I48.0 Paroxysmal atrial fibrillation; I49.5 Sick sinus syndrome
CPT/HCPCS: 36415; 80053; 80061; 84439; 84443

== ENCOUNTER → 2021-09-30 13:34 | Outpatient (CLI) | payer MEDICARE, OTHER, SELFPAY ==
--- NOTE | 2021-09-30 | DI.ECHO.S_ITS ---
[facility] +---------+ : : [address] : : : : [id number] : : : : Phone: [phone]+ Echocardiogram Report + + :Name: DAVID SHEPARD Study Date: 09/30/2021 Height: 60 in : :[facility] ReadingLocation: Weight: 180 lb : : Gender: Female BSA: 1.8 m2 : :: 1935 Age: 86 yrs BP: 137/73 mmHg: :Reason For Study: ATRIAL FIBRILLATION : :Ordering Physician: DEREK, : :RODERICK Performed By: Charlotte Mix : :Referring: RODERICK REED : + + Interpretation Summary The left ventricle is normal in size and wall thickness. The ejection fraction is estimated to be 60-65%. No significant change in LVEF from the previous study. The right ventricle is normal in size and function. There is a pacemaker lead in the right ventricle. There is mild to moderate tricuspid regurgitation. Compared to the prior echo exam, there has been an increase in TR severity. The right ventricular systolic pressure is estimated to be at least 35 mmHg based on an estimated right atrial pressure of 3 mm Hg. There is mild luminal irregularity and echogenicity in the abdominal aorta, suggestive of aortic atherosclerotic disease. Procedure: A two-dimensional transthoracic echocardiogram with color flow and Doppler was performed. The study quality was technically adequate. Comparison is made with the echocardiogram of 04/22/2019. The patient was in sinus rhythm with heart rates between 60-63 bpm during the exam. Left Ventricle: The left ventricle is normal in size and wall thickness. There is no thrombus. The ejection fraction is estimated to be 60-65%. There are no focal wall motion abnormalities. MV E/A: 0.89 Med Peak E' Jak: 5.8 cm/sec E/E' med: 14.8. Right Ventricle: The right ventricle is normal in size and function. There is a pacemaker lead in the right ventricle. Atria: The left atrium is moderately dilated. The left atrium has mildly increased in size since the prior echo exam. Right atrial size is normal. There is no Doppler evidence for an interatrial shunt. Mitral Valve: There is mild mitral annular calcification. There is mild mitral regurgitation. Compared to the prior echo study, there has been an increase in the severity of mitral regurgitation. Aortic Valve: The aortic valve is trileaflet. The aortic valve opens well. There is mild aortic valve sclerosis. There is discrete nodular thickening of the non- coronary cusp. There is no aortic valve stenosis. There is mild aortic regurgitation. Compared to the prior echo study, there has been an increase in the severity of aortic regurgitation. Tricuspid Valve: The tricuspid valve is normal. There is mild to moderate tricuspid regurgitation. The right ventricular systolic pressure is estimated to be at least 35 mmHg based on an estimated right atrial pressure of 3 mm Hg. Compared to the prior echo exam, there has been an increase in TR severity. Pulmonic Valve: The pulmonic valve leaflets are thin and pliable; valve motion is normal. There is no pulmonic valvular regurgitation. Great Vessels: The aortic root is normal size. The dimensions of the ascending aorta are normal. There is mild luminal irregularity and echogenicity in the abdominal aorta, suggestive of aortic atherosclerotic disease. The IVC is of normal diameter and collapses greater than 50% with a sniff. This suggests a low right atrial pressure of 3 mm Hg. Pericardium/ Pleura There is no pericardial effusion. There is an anterior echo-free space consistent with a fat pad. There is no pleural effusion. MMode/2D Measurements & Calculations LVIDd: 4.6 cm LVOT diam: 2.0 cm LVIDs: 3.0 cm Ao root diam: 2.9 cm FS: 35.0 % asc Aorta Diam: 3.0 cm IVSd: 0.97 cm Ao Arch Diam (Prox Trans): 2.8 cm LVPWd: 0.90 cm LV rios. diameter/BSA (cm/m^2): 2.6 LV sys. diameter/BSA (cm/m^2): 1.7 LA A2 area: 21.0 cm2 RA long axis: 5.1 cm LA A4 area: 20.5 cm2 RA area: 12.8 cm2 LA length (vol): 5.1 cm RA vol: 27.3 ml LA vol: 71.3 ml RA : 15.3 ml/m2 LA vol index: 40.0 ml/m2 IVC diam: 1.5 cm RVD1 (basal): 2.6 cm RVD2 (mid): 2.3 cm TAPSE: 2.0 cm Doppler Measurements & Calculations Ao V2 max: 151.2 cm/sec LVOT Max Jak: 109.9 cm/sec Ao V2 mean: 111.2 cm/sec LV V1 max P.8 mmHg Ao max P.1 mmHg LV V1 VTI: 24.8 cm Ao mean P.4 mmHg MAYRA(I,D): 2.3 cm2 Ao V2 VTI: 34.3 cm MAYRA(V,D): 2.3 cm2 sev ratio: 0.72 MAYRA indexed to BSA (cm^2/m^2): 1.3 AI P1/2t: 644.1 msec AI dec slope: 144.6 cm/sec2 MV E max jak: 85.2 cm/sec TR max jak: 282.8 cm/sec MV A max jak: 95.7 cm/sec TR max P.0 mmHg MV E/A: 0.89 PA V2 max: 92.4 cm/sec Med Peak E' Jak: 5.8 cm/sec PA V2 mean: 65.6 cm/sec E/E' med: 14.8 PA mean P.9 mmHg Lat Peak E' Jak: 7.6 cm/sec PA pr(Accel): 19.1 mmHg E/E' lat: 11.2 E/e' average: 13.0 MV dec time: 0.24 sec SV(LVOT): 78.6 ml Reading Physician:05:11 PM
== END ==
PROVIDERS: PCP Internal Medicine; Referring Provider Internal Medicine Cardiovascular Disease; Visit Provider Internal Medicine Cardiovascular Disease
DX: I08.3 Combined rheumatic disorders of mitral, aortic and tricuspid valves (principal); I48.0 Paroxysmal atrial fibrillation; Z95.0 Presence of cardiac pacemaker
CPT/HCPCS: 93306

== ENCOUNTER → 2021-11-03 10:24 | Outpatient (CLI) | payer MEDICARE, OTHER, SELFPAY ==
[2021-11-03 12:36] LABS: BUN Creatinine Ratio 20.6 (6-22); Blood Urea Nitrogen 13 mg/dL (7-17); Calcium 8.6 mg/dL (8.4-10.2); Carbon Dioxide 27 mmol/L (22-32); Chloride 106 mmol/L (98-107); Estimated Glomerular Filt Rate > 60 mL/min (>60); Glucose 133 mg/dL (80-110); HEMOLYSIS < 15 (0-50); Sodium 142 mmol/L (137-145)
[2021-11-03 13:42] LABS: Thyroid Stimulating Hormone 0.288 uIU/mL (0.47-4.68)
[2021-11-04 02:56] LABS: Hemoglobin A1C% w Est Avg Glu 6.3 % (4.0-6.0)
[2021-11-04 03:20] LABS: Free T4, Direct Thyroxine 1.22 ng/dL (0.78-2.19)
== END ==
PROVIDERS: PCP Internal Medicine; Referring Provider Internal Medicine; Visit Provider Internal Medicine
DX: E11.9 Type 2 diabetes mellitus without complications (principal); E03.9 Hypothyroidism, unspecified; E78.5 Hyperlipidemia, unspecified; I10 Essential (primary) hypertension; R73.9 Hyperglycemia, unspecified
CPT/HCPCS: 36415; 80048; 83036; 84439; 84443

== ENCOUNTER → 2021-11-18 08:36 | Outpatient (CLI) | payer MEDICARE, OTHER, SELFPAY ==
[2021-11-18 10:33] LABS: BUN Creatinine Ratio 19.4 (6-22); Blood Urea Nitrogen 14 mg/dL (7-17); Calcium 8.7 mg/dL (8.4-10.2); Carbon Dioxide 25 mmol/L (22-32); Chloride 104 mmol/L (98-107); Estimated Glomerular Filt Rate > 60 mL/min (>60); Glucose 133 mg/dL (80-110); HEMOLYSIS < 15 (0-50); Sodium 139 mmol/L (137-145)
== END ==
PROVIDERS: PCP Internal Medicine; Referring Provider Internal Medicine Cardiovascular Disease; Visit Provider Internal Medicine Cardiovascular Disease
DX: I48.0 Paroxysmal atrial fibrillation (principal)
CPT/HCPCS: 36415; 80048

== ENCOUNTER → 2022-02-22 07:38 | Outpatient (CLI) | payer MEDICARE, OTHER, SELFPAY ==
--- NOTE | 2022-02-22 07:39 | DI.CT.S_ITS ---
PROCEDURE: CT CHEST W CON INDICATIONS: right thoracic back pain TECHNIQUE: After the administration of intravenous contrast, 5 mm thick sections acquired from the pulmonary apices to the posterior costophrenic angles. 1 mm axial lung, 5 mm thick coronal and sagittal reformats and 7 mm axial MIP were acquired. For radiation dose reduction, the following was used: automated exposure control, adjustment of mA and/or kV according to patient size. COMPARISON: [facility], CT, CT CHEST HIGH RESOLUTION, 05/28/2019, 10:35. FINDINGS: Image quality: Adequate Lungs and pleura: No consolidation, pleural effusion, or pneumothorax. Similar small cyst or pneumatocele at the posterior right lower lobe. 4 millimeter subpleural nodule anterior left lower lobe (3/249), unchanged. Mediastinum: No pericardial effusion. No mediastinal or hilar adenopathy by size criteria. Thoracic aorta and central pulmonary arteries are normal in size. Esophagus is normal in caliber. Left chest pacemaker. Bones and chest wall: Multilevel degenerative change of the visualized spine. No axillary or supraclavicular adenopathy by size criteria. Abdomen: Visualized upper abdominal solid organs appear unremarkable. Upper abdominal bowel loops are normal in caliber. IMPRESSION: No acute thoracic abnormality identified Dictated by: Eduard Kearns M.D. on 02/22/2022 at 8:30 Approved by: Eduard Kearns M.D. on 02/22/2022 at 8:58
[2022-02-22 08:14] LABS: Estimated Glomerular Filt Rate > 60 mL/min (>60)
== END ==
PROVIDERS: PCP Internal Medicine; Referring Provider Internal Medicine; Visit Provider Internal Medicine
DX: R07.89 Other chest pain (principal); M54.6 Pain in thoracic spine; Z95.0 Presence of cardiac pacemaker
CPT/HCPCS: 36415; 71260; 82565

== ENCOUNTER → 2022-05-30 09:23 | Outpatient (CLI) | payer MEDICARE, OTHER, SELFPAY ==
[2022-05-30 10:52] LABS: Add Manual Diff / Slide Review NO; Basophils Absolute Auto 100 /uL (0-100); Basophils Percent Auto 0.9 % (0-2); Eosinophils Absolute Auto 200 /uL (0-450); Eosinophils Percent Auto 2.8 % (2-4); Hematocrit 37.2 % (36-46); Hemoglobin 12.3 g/dL (12.0-16.0); Lymphocytes Absolute Auto 1800 /uL (1100-4500); Lymphocytes Percent Auto 23.4 % (25-40); Mean Corpuscular HGB Conc 33.2 % (30-36); Mean Corpuscular Hemoglobin 29.6 PG (26-34); Mean Corpuscular Volume 89.3 fL (80-100); Monocytes Absolute Auto 600 /uL (0-900); Monocytes Percent Auto 7.1 % (3-14); Neutrophils Absolute Auto 5200 /uL (1500-7000); Neutrophils Percent Auto 65.8 % (50-75); Platelet Count 220 X10^3/uL (150-400); Red Blood Cell Count 4.17 X10^6/uL (4.0-5.2); Red Cell Distribution Width 14.4 % (11.6-14.8); White Blood Cell Count 7.9 X10^3/uL (4.5-11.0)
[2022-05-30 11:51] LABS: Alanine Aminotransferase 26 IU/L (<35); Albumin 3.9 g/dL (3.5-5.0); Albumin Globulin Ratio 1.2 (1.0-2.8); Alkaline Phosphatase 87 U/L (38-126); Aspartate Aminotransferase 29 IU/L (14-36); BUN Creatinine Ratio 24.6 (6-22); Bilirubin Total 0.5 mg/dL (0.2-1.3); Blood Urea Nitrogen 17 mg/dL (7-17); Calcium 8.6 mg/dL (8.4-10.2); Carbon Dioxide 27 mmol/L (22-32); Chloride 103 mmol/L (98-107); Cholesterol 135 mg/dL (140-199); Estimated Glomerular Filt Rate > 60 mL/min (>60); Globulin 3.2 g/dL (1.7-4.1); Glucose 127 mg/dL (80-110); HEMOLYSIS < 15 (0-50); Potassium 3.9 mmol/L (3.4-5.1); Sodium 138 mmol/L (137-145); Total Protein 7.1 g/dL (6.3-8.2); Triglycerides 156 mg/dL (35-150)
[2022-05-30 12:07] LABS: HDL Cholesterol 43 mg/dL (40-60); LDL Cholesterol Calculated 61 mg/dL (<100); Thyroid Stimulating Hormone 0.374 uIU/mL (0.47-4.68)
== END ==
PROVIDERS: PCP Internal Medicine; Referring Provider Internal Medicine Cardiovascular Disease; Visit Provider Internal Medicine Cardiovascular Disease
DX: E78.5 Hyperlipidemia, unspecified (principal); I10 Essential (primary) hypertension; I48.0 Paroxysmal atrial fibrillation
CPT/HCPCS: 36415; 80053; 80061; 84443; 85025

== ENCOUNTER → 2022-06-24 14:17 | Outpatient (CLI) | payer MEDICARE, OTHER, SELFPAY ==
--- NOTE | 2022-06-29 10:01 | PM.PFT.1 ---
Pulmonary Function Test Referral & Results Date Patient Seen: 06/24/22 Requesting provider: Godfrey Liang Results: The spirometry demonstrates an FVC of 1.30 L which is 64% of predicted. The FEV1 was measured at 1.04 L which is 70% of predicted. The FEV1/FVC ratio was 80 which is 109% of predicted. Following the administration of bronchodilator there was a 19% improvement in FEF 25-75%. Lung volumes show an SVC of 1.45 L which is 64% of predicted. The diffusing capacity was measured at 12.63 which is 62% of predicted. The maximum voluntary ventilation was reduced Interpretation: This study demonstrates possibly mild obstructive lung disease based on reduction FEV1 although FEV1/FVC ratio is preserved at outside of minimal benefit in small airway flow there is really no change after bronchodilator There is a moderate reduction in lung volumes suggesting the presence of restrictive lung disease There is also moderate reduction diffusing capacity suggesting disease at the capillary alveolar level Compared to PFTs performed in August of 2020, current study is essentially unchanged
== END ==
PROVIDERS: PCP Internal Medicine; Referring Provider Internal Medicine; Visit Provider Internal Medicine
DX: J44.9 Chronic obstructive pulmonary disease, unspecified (principal)
CPT/HCPCS: 94060; 94726; 94729

== ENCOUNTER → 2022-09-13 14:30 | Outpatient (CLI) | payer MEDICARE, OTHER, SELFPAY ==
--- NOTE | 2022-09-13 14:33 | DI.RAD.S_ITS ---
PROCEDURE: XR ACUTE ABDOMEN SERIES INDICATIONS: luq pain TECHNIQUE: One view chest and two views of the abdomen were acquired. COMPARISON: None. FINDINGS: Surgical changes and devices: Pacemaker. Chest: Lungs are clear. Heart size is mildly prominent. No pleural effusions. No pneumoperitoneum. Abdomen: Bowel gas pattern is normal. No suspicious calcifications. Visualized solid organ contours appear normal. Bones: No suspicious bony lesions. IMPRESSION: No obstruction. Dictated by: Yokasta Cadena M.D. on 09/13/2022 at 15:52 Approved by: Yokasta Cadena M.D. on 09/13/2022 at 15:54
[2022-09-13 15:00] LABS: Add Manual Diff / Slide Review NO; Basophils Absolute Auto 100 /uL (0-100); Basophils Percent Auto 0.8 % (0-2); Eosinophils Absolute Auto 200 /uL (0-450); Eosinophils Percent Auto 2.3 % (2-4); Hematocrit 40.6 % (36-46); Hemoglobin 13.4 g/dL (12.0-16.0); Lymphocytes Absolute Auto 2800 /uL (1100-4500); Lymphocytes Percent Auto 26.7 % (25-40); Mean Corpuscular HGB Conc 33.1 % (30-36); Mean Corpuscular Hemoglobin 29.4 PG (26-34); Mean Corpuscular Volume 88.6 fL (80-100); Monocytes Absolute Auto 900 /uL (0-900); Monocytes Percent Auto 8.7 % (3-14); Neutrophils Absolute Auto 6300 /uL (1500-7000); Neutrophils Percent Auto 61.5 % (50-75); Platelet Count 269 X10^3/uL (150-400); Red Blood Cell Count 4.58 X10^6/uL (4.0-5.2); Red Cell Distribution Width 14.8 % (11.6-14.8); White Blood Cell Count 10.3 X10^3/uL (4.5-11.0)
[2022-09-13 15:30] LABS: Alanine Aminotransferase 33 IU/L (<35); Albumin 4.2 g/dL (3.5-5.0); Albumin Globulin Ratio 1.1 (1.0-2.8); Alkaline Phosphatase 87 U/L (38-126); Aspartate Aminotransferase 39 IU/L (14-36); BUN Creatinine Ratio 19.1 (6-22); Bilirubin Total 0.5 mg/dL (0.2-1.3); Blood Urea Nitrogen 13 mg/dL (7-17); C-Reactive Protein Quant 1.4 mg/dL (<1.0); Calcium 9.1 mg/dL (8.4-10.2); Carbon Dioxide 30 mmol/L (22-32); Chloride 102 mmol/L (98-107); Estimated Glomerular Filt Rate > 60 mL/min (>60); Globulin 3.8 g/dL (1.7-4.1); Glucose 113 mg/dL (80-110); HEMOLYSIS < 15 (0-50); Lipase 115 U/L (23-300); Potassium 3.9 mmol/L (3.4-5.1); Sodium 141 mmol/L (137-145)
[2022-09-13 15:31] LABS: Erythrocyte Sedimentation Rate 4 MM/HR (0-20)
[2022-09-13 15:53] LABS: TSH w/ Reflex to FT4 0.54 uIU/mL (0.47-4.68)
== END ==
PROVIDERS: PCP Internal Medicine; Referring Provider Internal Medicine; Visit Provider Internal Medicine
DX: E03.9 Hypothyroidism, unspecified (principal); R10.12 Left upper quadrant pain
CPT/HCPCS: 36415; 74022; 80053; 83690; 84443; 85025; 85651; 86140

== ENCOUNTER → 2022-09-16 13:22 | Outpatient (CLI) | payer MEDICARE, OTHER, SELFPAY ==
--- NOTE | 2022-09-16 13:23 | DI.CT.S_ITS ---
PROCEDURE: CT ABDOMEN PELVIS W CON INDICATIONS: abdominal pain TECHNIQUE: After the administration of oral and IV contrast, axial sections were acquired from the lung bases to the pubic symphysis. Coronal and sagittal reformats were performed. For radiation dose reduction, the following was used: automated exposure control, adjustment of mA and/or kV according to patient size. COMPARISON: None. FINDINGS: Image quality: Excellent. Lung bases: Please refer to CT of chest report from the same day. Heart: Pacemaker leads are in the region of right atrium and right ventricle. Mild cardiomegaly, no pericardial effusion. ABDOMEN: Liver: There is hepatomegaly. Moderate hepatic steatosis is seen, no discrete hepatic lesion.. Gallbladder: Gallbladder is not visualized suggestive of prior cholecystectomy.. Biliary ducts: Unremarkable. Pancreas: Unremarkable. Spleen: Unremarkable. Adrenal Glands: Unremarkable. Kidneys and Ureters: Unrem bilateral kidneys are normal in size and enhancement. No hydronephrosis or hydroureter. Bilateral renal cysts are seen measures up to 4.9 x 4.5 cm in size in anterior cortex of midpole left kidney series 2, image 27. Right peripelvic renal cyst is also seen. Stomach and Bowel: There is a small hiatal hernia. No bowel obstruction. No gastric or small bowel wall thickening. No colonic wall thickening. No mesenteric fat stranding. No abscess collection. Peritoneum: No abnormal intraperitoneal fluid. No free air. Ventral Wall: No hernia. Abdominal Nodes: No retroperitoneal or mesenteric adenopathy by size criteria. Vessels: Aorta and inferior vena cava are normal in size. [id number] atherosclerotic calcifications in abdominal aorta is seen. PELVIS: Pelvic Organs: Unremarkable. Bladder: Unremarkable. Pelvic Nodes: No enlarged lymph nodes. Miscellaneous: No inguinal hernias are seen. Bones: Unrem no suspicious bony lesions. No acute vertebral body compression fracture. IMPRESSION: 1. No acute inflammatory process is noted in abdomen or pelvis. No abnormal bowel wall thickening. No free fluid or free air. 2. Bilateral renal cysts as above. No hydronephrosis or hydroureter. 3. Hepatomegaly and moderate hepatic steatosis, no discrete hepatic lesion. Suggestion of prior cholecystectomy. Dictated by: Ike Flanagan M.D. on 09/16/2022 at 22:17 Approved by: Ike Flanagan M.D. on 09/16/2022 at 22:22
--- NOTE | 2022-09-16 13:27 | DI.CT.S_ITS ---
PROCEDURE: CT CHEST WO CON INDICATIONS: Lung nodule TECHNIQUE: Noncontrast 2.0-2.5 mm thick sections acquired from the pulmonary apices to the posterior costophrenic angles. 7 mm thick axial MIP and 5 mm coronal and sagittal reformats were then acquired. A low radiation dose technique was utilized. COMPARISON: [facility], CT, CT CHEST W CON, 02/22/2022, 8:16. FINDINGS: Image quality: Diagnostic, given the low radiation dose technique. Lungs and pleura: 4 mm solid nodule in anterior left lower lobe at left lung base is again seen and unchanged series 3, image 241. Scattered atelectasis in periphery of bilateral lower lung malik are seen. Small cyst or pneumatocele in posterior medial right lower lobe remains unchanged in size and appearance. No new pulmonary nodule or mass is seen. No pleural effusion or pneumothorax. Central and peripheral airway is patent. Mediastinum: Heart size is normal. No pericardial effusion. No mediastinal adenopathy by size criteria. Thoracic aorta and central pulmonary arteries are normal in size. Esophagus is normal in caliber. No hiatal hernia. Bones and chest wall: Left chest wall pacemaker is noted with leads in the region of right atrium and right ventricle. No suspicious bony lesions. No vertebral body compression fractures. Degenerative endplate changes throughout thoracic spine is seen. No axillary or supraclavicular adenopathy by size criteria. Thyroid gland is within normal limits.. Abdomen: Visualized upper abdomen solid organs and bowel loops appear normal in the absence of contrast. IMPRESSION: 1. No significant changes from previous study. Stable 4 mm left lower lobe nodule. No new pulmonary nodule or mass is seen. 2. Scattered atelectasis in bilateral lung malik. Stable pneumatocele or cyst in posterior medial right lower lobe. 3. No mediastinal or hilar lymphadenopathy. Fleischner Society criteria for SOLID lung nodule followup. Nodule size (mm)Low-risk patientHigh-risk patient<6 (single or multiple)No routine followup.Optional CT at 12 months. 6-8 (single or multiple)CT at 6-12 months, then optional CT at 18-24 mo.CT at 6-12 months, then CT at 18-24 months. >8 (single)CT at 3 months, PET-CT, or biopsy. Same as for low-risk pts. >8 (multiple)CT at 3-6 months, then optional CT at 18-24 mo.CT at 3-6 months, then CT at 18-24 months. Fleischner Society criteria for SUB-SOLID lung nodule followup. Solitary pure ground-glass nodules<6 mm (ground glass or part solid)No followup needed. 6 mm or larger (ground glass)CT at 6-12 months to confirm persistence, then CT every 2 years until 5 years.6 mm or larger (part solid)CT at 3-6 months to confirm persistence, then annual CT until 5 years if unchanged and solid component remains <6 mm. Multiple sub-solid nodules<6 mmCT at 3-6 months, then CT consider at 2 & 4 years for high risk patients. [address] at 3-6 months. Subsequent management based on most suspicious lesions. Recommendations do not apply to lung cancer screening, patients with immunosuppression, or patients with known primary cancer. Dictated by: Ike Flanagan M.D. on 09/16/2022 at 22:12 Approved by: Ike Flanagan M.D. on 09/16/2022 at 22:16
== END ==
PROVIDERS: PCP Internal Medicine; Referring Provider Internal Medicine; Visit Provider Internal Medicine
DX: R91.1 Solitary pulmonary nodule (principal); N28.1 Cyst of kidney, acquired; K76.0 Fatty (change of) liver, not elsewhere classified; R16.0 Hepatomegaly, not elsewhere classified
CPT/HCPCS: 71250; 74177; Q9967

== ENCOUNTER → 2022-11-25 17:16 | Outpatient (CLI) | payer MEDICARE, OTHER, SELFPAY ==
--- NOTE | 2022-11-25 17:17 | DI.US.S_ITS ---
PROCEDURE: US PERIPH VENOUS LOW EXTREM LT INDICATIONS: SWELLINGN TECHNIQUE: Real-time imaging, as well as color and pulse Doppler interrogation, were performed of the lower extremity deep veins from the inguinal ligament to the popliteal fossa, with documentation of the visualized calf veins. COMPARISON: None. FINDINGS: The common femoral, femoral, popliteal, and the visualized calf veins are normally compressible, and free of intraluminal thrombus. Color and pulse Doppler demonstrate normal phasic intraluminal flow. There is normal augmentation response to distal compression maneuver. IMPRESSION: No findings of lower extremity deep venous thrombosis. Dictated by: Linwood Power M.D. on 11/25/2022 at 17:35 Approved by: Linwood Power M.D. on 11/25/2022 at 17:35
== END ==
PROVIDERS: PCP Internal Medicine; Referring Provider Specialist; Visit Provider Specialist
DX: M79.89 Other specified soft tissue disorders (principal); J98.4 Other disorders of lung; R91.1 Solitary pulmonary nodule
CPT/HCPCS: 93971; 99214

== ENCOUNTER → 2022-12-01 08:06 | Outpatient (CLI) | payer MEDICARE, OTHER, SELFPAY ==
[2022-12-01 08:38] LABS: Add Manual Diff / Slide Review NO; Basophils Absolute Auto 100 /uL (0-100); Basophils Percent Auto 1.1 % (0-2); Eosinophils Absolute Auto 200 /uL (0-450); Eosinophils Percent Auto 2.7 % (2-4); Hematocrit 38.3 % (36-46); Hemoglobin 12.7 g/dL (12.0-16.0); Lymphocytes Absolute Auto 2600 /uL (1100-4500); Lymphocytes Percent Auto 27.5 % (25-40); Mean Corpuscular HGB Conc 33.3 % (30-36); Mean Corpuscular Hemoglobin 29.8 PG (26-34); Mean Corpuscular Volume 89.4 fL (80-100); Monocytes Absolute Auto 700 /uL (0-900); Monocytes Percent Auto 7.9 % (3-14); Neutrophils Absolute Auto 5600 /uL (1500-7000); Neutrophils Percent Auto 60.8 % (50-75); Platelet Count 244 X10^3/uL (150-400); Red Blood Cell Count 4.28 X10^6/uL (4.0-5.2); Red Cell Distribution Width 14.3 % (11.6-14.8); White Blood Cell Count 9.3 X10^3/uL (4.5-11.0)
[2022-12-01 09:09] LABS: Alanine Aminotransferase 26 IU/L (<35); Albumin Globulin Ratio 1.3 (1.0-2.8); Alkaline Phosphatase 90 U/L (38-126); Aspartate Aminotransferase 33 IU/L (14-36); BUN Creatinine Ratio 17.1 (6-22); Bilirubin Total 0.4 mg/dL (0.2-1.3); Blood Urea Nitrogen 12 mg/dL (7-17); Calcium 9.1 mg/dL (8.4-10.2); Carbon Dioxide 29 mmol/L (22-32); Chloride 102 mmol/L (98-107); Estimated Glomerular Filt Rate > 60 mL/min (>60); Glucose 138 mg/dL (80-110); HEMOLYSIS < 15 (0-50); Sodium 139 mmol/L (137-145)
== END ==
PROVIDERS: PCP Internal Medicine; Referring Provider Nurse Practitioner; Visit Provider Nurse Practitioner
DX: I48.0 Paroxysmal atrial fibrillation (principal)
CPT/HCPCS: 36415; 80053; 85025

== ENCOUNTER → 2022-12-22 14:49 | Outpatient (CLI) | payer MEDICARE, OTHER, SELFPAY | PROVIDERS: PCP Internal Medicine; Referring Provider Nurse Practitioner; Visit Provider Nurse Practitioner | DX: R06.02 Shortness of breath (principal); R06.00 Dyspnea, unspecified | CPT/HCPCS: 94618 ==

== ENCOUNTER → 2023-02-06 14:16 | Outpatient (CLI) | payer MEDICARE, OTHER, SELFPAY ==
--- NOTE | 2023-02-06 | DI.ECHO.S_ITS ---
[place] [facility]---------+ [facility] +---------+ : : [address] : : : : [id number] : : : : Phone: [phone]+ Echocardiogram Report + + :Name: DAVID SHEPARD Study Date: 02/06/2023 Height: 60 in : :[facility] ReadingLocation: Weight: 180 lb : : Gender: Female BSA: 1.8 m2 : :: 1935 Age: 87 yrs BP: 174/70 mmHg: :Reason For Study: Shortness of Breath : :Ordering Physician: Cherie Espinosa M.D. : :Thaiwren Performed By: Katarina Ling : :Referring: Cherie Almazaniwal : + + Interpretation Summary The left ventricle is normal in size. The left ventricle is mildly hyperdynamic. The ejection fraction is estimated to be 70-75%. MV E/A: 0.90 Med Peak E' Jak: 6.3 cm/sec E/E' med: 15.4 The right ventricle is normal in size and function. There is a pacemaker lead in the right ventricle. There is mild aortic regurgitation. Compared to the prior echo study, there has been no change in the severity of aortic regurgitation. There is mild tricuspid regurgitation. Compared to the prior echo exam, there has been a decrease in TR severity. The right ventricular systolic pressure is estimated to be at least 31 mmHg based on an estimated right atrial pressure of 3 mm Hg. Procedure: A two-dimensional transthoracic echocardiogram with color flow and Doppler was performed. The study quality was technically difficult. Comparison is made with the echocardiogram of 09/30/2021. The patient was in normal sinus rhythm during the exam. Left Ventricle: The left ventricle is normal in size. There is normal left ventricular wall thickness. There is no echo evidence for significant left ventricular outflow tract obstruction. There is no thrombus. The left ventricle is mildly hyperdynamic. The ejection fraction is estimated to be 70- 75%. There are no focal wall motion abnormalities. MV E/A: 0.90 Med Peak E' Jak: 6.3 cm/sec E/E' med: 15.4. Right Ventricle: The right ventricle is normal in size and function. There is a pacemaker lead in the right ventricle. Atria: The left atrium is mildly dilated. The left atrium has mildly decreased in size since the prior echo exam. Right atrial size is normal. There is no Doppler evidence for an interatrial shunt. Mitral Valve: The mitral valve leaflets are mildly calcified. There is mild mitral annular calcification. There is no mitral valve stenosis. There is trace mitral regurgitation. Compared to the prior echo study, there has been a decrease in the severity of mitral regurgitation. Aortic Valve: The aortic valve is trileaflet. The aortic valve is mildly calcified. There is discrete nodular thickening of the non- coronary cusp. There is no aortic valve stenosis. There is mild aortic regurgitation. Compared to the prior echo study, there has been no change in the severity of aortic regurgitation. Tricuspid Valve: The tricuspid valve is not well visualized. The tricuspid valve is not well visualized, but is grossly normal. There is no tricuspid stenosis. There is mild tricuspid regurgitation. The right ventricular systolic pressure is estimated to be at least 31 mmHg based on an estimated right atrial pressure of 3 mm Hg. Compared to the prior echo exam, there has been a decrease in TR severity. Pulmonic Valve: The pulmonic valve is not well visualized. There is no pulmonic valvular stenosis. There is trace pulmonic regurgitation. Great Vessels: The aortic root is normal size. The ascending aorta is normal in size. The pulmonary artery is normal size. The IVC is of normal diameter and collapses greater than 50% with a sniff. This suggests a low right atrial pressure of 3 mm Hg. Pericardium/ Pleura There is no pericardial effusion. There is an anterior echo-free space consistent with a fat pad. There is no pleural effusion. MMode/2D Measurements & Calculations LVIDd: 4.5 cm LVOT diam: 1.8 cm LVIDs: 3.2 cm Ao root diam: 2.7 cm FS: 28.9 % asc Aorta Diam: 2.3 cm IVSd: 0.90 cm LVPWd: 1.3 cm LV rios. diameter/BSA (cm/m^2): 2.5 LV sys. diameter/BSA (cm/m^2): 1.8 LA A2 area: 13.6 cm2 RA long axis: 5.2 cm LA A4 area: 13.6 cm2 RA area: 11.5 cm2 LA length (vol): 4.8 cm RA vol: 21.7 ml LA vol: 32.8 ml RA : 12.2 ml/m2 LA vol index: 18.4 ml/m2 RVD1 (basal): 2.8 cm LVLs ap4: 5.7 cm LVLd ap2: 6.4 cm TAPSE_phl: 2.4 cm LVLs ap2: 5.4 cm Doppler Measurements & Calculations Ao V2 max: 169.0 cm/sec LVOT Max Jak: 158.5 cm/sec Ao V2 mean: 112.0 cm/sec LV V1 max P.1 mmHg Ao max P.0 mmHg LV V1 VTI: 31.5 cm Ao mean P.0 mmHg MAYRA(I,D): 2.2 cm2 Ao V2 VTI: 36.5 cm MAYRA(V,D): 2.4 cm2 sev ratio: 0.86 MAYRA indexed to BSA (cm^2/m^2): 1.2 MV E max jak: 97.7 cm/sec TR max jak: 264.0 cm/sec MV A max jak: 108.0 cm/sec TR max P.9 mmHg MV E/A: 0.90 PA V2 max: 102.0 cm/sec Med Peak E' Jak: 6.3 cm/sec PA V2 mean: 71.1 cm/sec E/E' med: 15.4 PA mean P.0 mmHg Lat Peak E' Jak: 7.8 cm/sec PA pr(Accel): 36.3 mmHg E/E' lat: 12.6 E/e' average: 14.0 MV dec time: 0.19 sec SV(LVOT): 80.2 ml AV VR_phl: 0.94 MAYRA(VTI)/BSA_phl: 1.2 Reading Physician:12:02 PM
--- NOTE | 2023-02-07 20:04 | DI.NM.S_ITS ---
DATE OF SERVICE: 02/06/2023 PROCEDURE: Pharmacological perfusion study. INDICATIONS: Shortness of breath with history of AFib, pacemaker. RADIOPHARMACEUTICAL: 25.1 mCi technetium-99m Myoview IV was injected at stress and 26.7 mCi technetium-99m Myoview IV was injected at rest. CARDIAC STRESS: The patient underwent IV Lexiscan perfusion study under the supervision of an attending staff using standard intravenous Lexiscan as per protocol. She remained hemodynamically stable. Resting blood pressure 126/70. Peak blood pressure 128/70. Baseline rhythm sinus with intermittent PACs. During stress, no convincing ischemic changes seen. No chest discomfort. Had minimal dyspnea. RAW DATA: There is increased subdiaphragmatic activity. Breast shadow was seen as well. GATED STUDY: Hyperdynamic LV function. Stress left ventricular ejection fraction 98%, which is likely over-estimation due to small lung volume. Resting end-diastolic volume 56 mL. TID ratio 0.88, which is within normal limits. Lung and heart ratio 0.45, which is at the upper limit of normal. MYOCARDIAL PERFUSION SCAN: Stress supine, resting supine images were compared to each other. There are no stress prone images. Stress supine and resting supine images revealed small size, minimally decreased perfusion of distal anterior wall without any reversible ischemia. Summed stress and summed rest score zero with difference score zero. CONCLUSION: I will call this study likely a normal myocardial perfusion study with zero summed stress score as well as zero summed rest score with zero summed difference score. Likely mildly decreased perfusion of distal anterior wall which is fixed due to breast tissue attenuation artifact. This study does not have any stress prone images, however, breast shadow was seen during raw images. Anterior wall is moving well. Hence, unlikely old myocardial infarction. The patient had a perfusion study in March,. At that time patient had prone images. There was normal myocardial perfusion. Overall, low-risk myocardial perfusion scan. Thi Sevilla - ELDA/alfred/jose antonio doc#: [id number]/job#: [id number] dd: 02/07/2023 16:30:00 dt: 02/07/2023 19:40:00 DICTATING MD/COPIES TO: Cherie Howell MD COPIES MNE: JUSTINO;
== END ==
PROVIDERS: PCP Internal Medicine; Referring Provider Internal Medicine Cardiovascular Disease; Visit Provider Internal Medicine Cardiovascular Disease
DX: I08.3 Combined rheumatic disorders of mitral, aortic and tricuspid valves (principal); R06.02 Shortness of breath; R06.09 Other forms of dyspnea; I48.0 Paroxysmal atrial fibrillation; I10 Essential (primary) hypertension; Z95.0 Presence of cardiac pacemaker
CPT/HCPCS: 78452; 93017; 93306; A9502; J2785

== ENCOUNTER → 2023-04-06 08:18 | Outpatient (CLI) | payer MEDICARE, OTHER, SELFPAY ==
[2023-04-06 09:09] LABS: Hemoglobin A1C% w Est Avg Glu 6.6 % (4.0-6.0)
[2023-04-06 09:25] LABS: Alanine Aminotransferase 24 IU/L (<35); Albumin 4.2 g/dL (3.5-5.0); Albumin Globulin Ratio 1.2 (1.0-2.8); Alkaline Phosphatase 83 U/L (38-126); Aspartate Aminotransferase 37 IU/L (14-36); BUN Creatinine Ratio 20.8 (6-22); Bilirubin Total 0.7 mg/dL (0.2-1.3); Blood Urea Nitrogen 15 mg/dL (7-17); Calcium 9.3 mg/dL (8.4-10.2); Carbon Dioxide 27 mmol/L (22-32); Chloride 105 mmol/L (98-107); Estimated Glomerular Filt Rate > 60 mL/min (>60); Globulin 3.6 g/dL (1.7-4.1); Glucose 145 mg/dL (80-110); HEMOLYSIS < 15 (0-50); Potassium 3.9 mmol/L (3.4-5.1); Sodium 139 mmol/L (137-145); Total Protein 7.8 g/dL (6.3-8.2)
[2023-04-06 10:13] LABS: Free T4, Direct Thyroxine 1.24 ng/dL (0.78-2.19)
[2023-04-06 10:27] LABS: Thyroid Stimulating Hormone 1.41 uIU/mL (0.47-4.68)
[2023-04-06 10:51] LABS: Creatinine Urine Random 177.1 mg/dL
[2023-04-06 10:54] LABS: Microalbumi Creatinin Ratio Ur 33.8 ug/mg CR (<30)
== END ==
PROVIDERS: PCP Internal Medicine; Referring Provider Internal Medicine; Visit Provider Internal Medicine
DX: E11.9 Type 2 diabetes mellitus without complications (principal); I10 Essential (primary) hypertension; E78.5 Hyperlipidemia, unspecified
CPT/HCPCS: 36415; 80053; 82043; 82570; 83036; 84439; 84443

== ENCOUNTER → 2023-09-11 09:43 | Outpatient (CLI) | payer MEDICARE, OTHER, SELFPAY ==
[2023-09-11 11:46] LABS: Alanine Aminotransferase 21 IU/L (<35); Albumin 3.9 g/dL (3.5-5.0); Albumin Globulin Ratio 1.4 (1.0-2.8); Alkaline Phosphatase 87 U/L (38-126); Aspartate Aminotransferase 29 IU/L (14-36); BUN Creatinine Ratio 22.7 (6-22); Bilirubin Total 0.4 mg/dL (0.2-1.3); Blood Urea Nitrogen 17 mg/dL (7-17); Calcium 8.8 mg/dL (8.4-10.2); Carbon Dioxide 28 mmol/L (22-32); Chloride 106 mmol/L (98-107); Cholesterol 133 mg/dL (140-199); Estimated Glomerular Filt Rate > 60 mL/min (>60); Globulin 2.7 g/dL (1.7-4.1); Glucose 132 mg/dL (80-110); HDL Cholesterol 50 mg/dL (40-60); HEMOLYSIS < 15 (0-50); LDL Cholesterol Calculated 52 mg/dL (<100); Potassium 4.3 mmol/L (3.4-5.1); Sodium 140 mmol/L (137-145); Total Protein 6.6 g/dL (6.3-8.2); Triglycerides 156 mg/dL (35-150)
[2023-09-11 12:49] LABS: Hemoglobin A1C% w Est Avg Glu 6.1 % (4.0-6.0)
== END ==
PROVIDERS: PCP Internal Medicine; Referring Provider Internal Medicine; Visit Provider Internal Medicine
DX: E11.9 Type 2 diabetes mellitus without complications (principal); I10 Essential (primary) hypertension; E78.5 Hyperlipidemia, unspecified
CPT/HCPCS: 36415; 80053; 80061; 83036

== ENCOUNTER → 2023-12-21 13:40 | Outpatient (CLI) | payer MEDICARE, OTHER, SELFPAY | PROVIDERS: Family Provider Internal Medicine; PCP Internal Medicine; Referring Provider Internal Medicine; Visit Provider Internal Medicine | DX: G56.02 Carpal tunnel syndrome, left upper limb (principal) | CPT/HCPCS: 95886; 95909 ==

== ENCOUNTER → 2024-03-08 08:06 | Outpatient (CLI) | payer MEDICARE, OTHER, SELFPAY ==
[2024-03-08 09:18] LABS: Hemoglobin A1C% w Est Avg Glu 6.5 % (4.0-6.0)
[2024-03-08 09:25] LABS: Albumin 4.1 g/dL (3.5-5.0); Albumin Globulin Ratio 1.5 (1.0-2.8); Alkaline Phosphatase 86 U/L (38-126); BUN Creatinine Ratio 22.9 (6-22); Bilirubin Total 0.5 mg/dL (0.2-1.3); Blood Urea Nitrogen 16 mg/dL (7-17); Calcium 9.3 mg/dL (8.4-10.2); Carbon Dioxide 24 mmol/L (22-32); Chloride 104 mmol/L (98-107); Cholesterol 134 mg/dL (140-199); Estimated Glomerular Filt Rate > 60 mL/min (>60); Globulin 2.8 g/dL (1.7-4.1); Glucose 146 mg/dL (80-110); HDL Cholesterol 42 mg/dL (40-60); HEMOLYSIS < 15 (0-50); LDL Cholesterol Calculated 51 mg/dL (<100); Potassium 4.3 mmol/L (3.4-5.1); Sodium 140 mmol/L (137-145); Total Protein 6.9 g/dL (6.3-8.2); Triglycerides 203 mg/dL (35-150)
[2024-03-08 09:27] LABS: Alanine Aminotransferase 25 IU/L (<35); Aspartate Aminotransferase 31 IU/L (14-36)
[2024-03-08 09:41] LABS: Free T4, Direct Thyroxine 1.13 ng/dL (0.78-2.19)
[2024-03-08 09:56] LABS: Thyroid Stimulating Hormone 0.892 uIU/mL (0.47-4.68)
== END ==
LOC: LAB 08:07
PROVIDERS: Family Provider Internal Medicine; PCP Internal Medicine; Referring Provider Internal Medicine; Visit Provider Internal Medicine
DX: E11.9 Type 2 diabetes mellitus without complications (principal); I10 Essential (primary) hypertension; E78.5 Hyperlipidemia, unspecified; E03.9 Hypothyroidism, unspecified
CPT/HCPCS: 36415; 80053; 80061; 83036; 84439; 84443

== ENCOUNTER → 2024-09-03 08:20 | Outpatient (CLI) | payer MEDICARE, OTHER, SELFPAY ==
[2024-09-03 09:29] LABS: Hemoglobin A1C% w Est Avg Glu 6.2 % (4.0-6.0)
[2024-09-03 09:31] LABS: Alanine Aminotransferase 30 IU/L (<35); Albumin 4.2 g/dL (3.5-5.0); Albumin Globulin Ratio 1.7 (1.0-2.8); Alkaline Phosphatase 72 U/L (38-126); Aspartate Aminotransferase 37 IU/L (14-36); BUN Creatinine Ratio 21.1 (6-22); Bilirubin Total 0.7 mg/dL (0.2-1.3); Blood Urea Nitrogen 16 mg/dL (7-17); Calcium 9.3 mg/dL (8.4-10.2); Carbon Dioxide 29 mmol/L (22-32); Chloride 103 mmol/L (98-107); Cholesterol 135 mg/dL (140-199); Estimated Glomerular Filt Rate > 60 mL/min (>60); Globulin 2.5 g/dL (1.7-4.1); Glucose 155 mg/dL (70-99); HDL Cholesterol 47 mg/dL (40-60); HEMOLYSIS < 15 (0-50); LDL Cholesterol Calculated 54 mg/dL (<100); Potassium 4.1 mmol/L (3.4-5.1); Sodium 141 mmol/L (137-145); Total Protein 6.7 g/dL (6.3-8.2); Triglycerides 169 mg/dL (35-150)
[2024-09-03 09:49] LABS: Free T4, Direct Thyroxine 1.42 ng/dL (0.78-2.19)
[2024-09-03 10:03] LABS: TSH w/ Reflex to FT4 0.47 uIU/mL (0.47-4.68)
== END ==
PROVIDERS: Family Provider Internal Medicine; PCP Internal Medicine; Referring Provider Internal Medicine; Visit Provider Internal Medicine
DX: E11.9 Type 2 diabetes mellitus without complications (principal); I10 Essential (primary) hypertension; E78.5 Hyperlipidemia, unspecified; E03.9 Hypothyroidism, unspecified
CPT/HCPCS: 36415; 80053; 80061; 83036; 84439; 84443

== ENCOUNTER → 2025-01-15 09:31 | Outpatient (CLI) | payer MEDICARE, OTHER, SELFPAY ==
[2025-01-15 09:48] LABS: Add Manual Diff / Slide Review NO; Hematocrit 40.2 % (36-46); Hemoglobin 13.6 g/dL (12.0-16.0); Lymphocytes Absolute Auto 2300 /uL (1100-4500); Mean Corpuscular HGB Conc 33.9 % (30-36); Mean Corpuscular Hemoglobin 30.4 PG (26-34); Mean Corpuscular Volume 89.7 fL (80-100); Platelet Count 245 X10^3/uL (150-400)
[2025-01-15 10:05] LABS: Hemoglobin A1C% w Est Avg Glu 6.6 % (4.0-6.0)
[2025-01-15 10:24] LABS: Alanine Aminotransferase 28 IU/L (<35); Albumin 4.2 g/dL (3.5-5.0); Albumin Globulin Ratio 1.4 (1.0-2.8); Alkaline Phosphatase 71 U/L (38-126); Blood Urea Nitrogen 18 mg/dL (7-17); Calcium 9.0 mg/dL (8.4-10.2); Carbon Dioxide 28 mmol/L (22-32); Chloride 102 mmol/L (98-107); Cholesterol 132 mg/dL (140-199); Estimated Glomerular Filt Rate > 60 mL/min (>60); Globulin 2.9 g/dL (1.7-4.1); Glucose 142 mg/dL (70-99); HDL Cholesterol 50 mg/dL (40-60); HEMOLYSIS < 15 (0-50); Potassium 4.0 mmol/L (3.4-5.1); Sodium 140 mmol/L (137-145); Total Protein 7.1 g/dL (6.3-8.2); Triglycerides 173 mg/dL (35-150)
== END ==
PROVIDERS: Family Provider Internal Medicine; PCP Internal Medicine; Referring Provider Internal Medicine; Visit Provider Internal Medicine
DX: I10 Essential (primary) hypertension (principal); E11.9 Type 2 diabetes mellitus without complications; E78.5 Hyperlipidemia, unspecified; D64.9 Anemia, unspecified
CPT/HCPCS: 36415; 80053; 80061; 83036; 85025

== ENCOUNTER → 2025-04-15 13:09 | Outpatient (CLI) | payer MEDICARE, OTHER, SELFPAY ==
[2025-04-15 14:30] LABS: Alanine Aminotransferase 22 IU/L (<35); Albumin 4.2 g/dL (3.5-5.0); Albumin Globulin Ratio 1.4 (1.0-2.8); Alkaline Phosphatase 63 U/L (38-126); Blood Urea Nitrogen 16 mg/dL (7-17); Calcium 9.2 mg/dL (8.4-10.2); Carbon Dioxide 29 mmol/L (22-32); Chloride 104 mmol/L (98-107); Estimated Glomerular Filt Rate > 60 mL/min (>60); Globulin 3.0 g/dL (1.7-4.1); Glucose 144 mg/dL (70-99); HEMOLYSIS < 15 (0-50); Sodium 141 mmol/L (137-145); Total Protein 7.2 g/dL (6.3-8.2)
[2025-04-15 14:40] LABS: Potassium 4.0 mmol/L (3.4-5.1)
[2025-04-15 14:46] LABS: Free T3, Triiodothyronine Free 2.92 pg/mL (2.77-5.27); Free T4, Direct Thyroxine 1.11 ng/dL (0.78-2.19)
[2025-04-15 15:00] LABS: Thyroid Stimulating Hormone 2.90 uIU/mL (0.47-4.68)
== END ==
PROVIDERS: PCP Internal Medicine; Referring Provider Internal Medicine; Visit Provider Internal Medicine
DX: I10 Essential (primary) hypertension (principal); E03.9 Hypothyroidism, unspecified
CPT/HCPCS: 36415; 80053; 84439; 84443; 84481